=== PATIENT | female | born 1940 | race Asian ===

== ENCOUNTER 2017-10-03 13:30 | Inpatient (IN) | payer MEDICARE, OTHER ==
[~2017-10-03] VITALS: Ht 152.4 cm; Wt 79.0 kg
[~2017-10-03 13:30] MED LIST: ASPI325T33 PO; ATOR40TA16 PO; AZOR5TAB4 PO; CLOP75TA PO; GLIP-157 PO; HYDR-3580 PO; LUTE20CA PO; METO100T PO; TOLT1CAP PO
[2017-10-24] MEDS ORDERED: CHLORHEXIDINE GLUCONATE 2 % 1 PACK (2 CLOTHS) TOPICAL PRN (05:45)
[2017-10-24] MEDS ORDERED: POVIDONE IODINE 5% (ANTISEPSIS KIT) 4 APPLICATIONS EACH NARE PRN (05:45)
[2017-10-24] MEDS ORDERED: SODIUM CHLORID 0.9% 500 ML IV PRN (05:45)
[2017-10-24] MEDS ORDERED: INSULIN HUMAN REGULAR 1,000 UNITS/10 ML VIAL SQ PRN (05:45)
[2017-10-24] MEDS ORDERED: LACTATED RINGER'S 1000 ML IV PRN (05:45)
[2017-10-24] MEDS ORDERED: METOPROLOL TARTRATE 25 MG TAB PO PRN (05:45)
[2017-10-24] MEDS ORDERED: metroNIDAZOLE 500 MG INJ 100 ML IV SCH (05:45)
[2017-10-24] MEDS ORDERED: ASPI1TAB57 PO (06:06)
[2017-10-24] MEDS ORDERED: ACETAMINOPHEN 1000 MG/100 ML 100 ML IV ONE (06:23)
[2017-10-24 06:31] LABS: PROTHROMBIN TIME - PATIENT 10.9 SEC (9.8-11.6)
[2017-10-24] MEDS ORDERED: SUGAMMADEX SODIUM 200 MG/2 ML VIAL IV PUSH ONE ×2 (06:53)
[2017-10-24] MEDS ORDERED: ceFAZolin INJ 1,000 MG VIAL ONE (07:40)
[2017-10-24] MEDS ORDERED: ceFAZolin INJ 1,000 MG VIAL IV ONE (09:37)
[2017-10-24] MEDS ORDERED: ONDANSETRON HCL 4 MG/2 ML VIAL IV PUSH PRN ×2 (11:15→12:30)
--- NOTE | 2017-10-24 11:22 | PD.OP ---
Operative Report Date of Surgery: Oct 24, 2017 Preoperative Diagnosis: Left Renal Mass Postoperative Diagnosis: same Procedure: Left robotic Radical Nephrectomy Surgeon: Chay Sadler Deputy Attorney General(s): n/a Operation and Findings: EBL 200 ml To ISC for observation due to comorbidities See dictated report. Chay Sadler MD Oct 24, 2017 11:22
[2017-10-24] MEDS ORDERED: GLUCAGON 1 MG/ML VIAL OTHER PRN (11:30)
[2017-10-24] MEDS ORDERED: LABETALOL HCL 100 MG/20 ML VIAL IV ONE (12:00)
[2017-10-24] MEDS ORDERED: ROCURONIUM INJ 50 MG/5 ML SYRINGE IV PUSH ONE (12:00)
[2017-10-24] MEDS ORDERED: ONDANSETRON HCL 4 MG/2 ML VIAL IV PUSH ONE (12:00)
[2017-10-24] MEDS ORDERED: STERILE WATER FOR INJECTION 20 ML VIAL IV ONE (12:00)
[2017-10-24] MEDS: SODIUM CHLOR 0.9% 1000 ML INJ 1,000 ML IV SCH ×2 (12:00→21:25)
[2017-10-24] MEDS ORDERED: PROPOFOL 200 MG/20 ML AMP IV ONE (12:00)
[2017-10-24] MEDS ORDERED: SODIUM CHLORID 0.9% 500 ML INJ 500 ML IV ONE (12:00)
[2017-10-24] MEDS ORDERED: EPINEPHrine HCL (1:1000) 1 MG/ML VIAL IV ONE (12:00)
[2017-10-24] MEDS ORDERED: LIDOCAINE HCL 1% PF 5 ML SYRINGE OTHER ONE (12:00)
[2017-10-24] MEDS ORDERED: NORMOSOL R INJ 3,000 ML IV ONE (12:00)
[2017-10-24] MEDS ORDERED: DEXAMETHASONE SOD PHOS 4 MG/ML VIAL IV ONE (12:00)
[2017-10-24] MEDS ORDERED: VECURONIUM BROMIDE 20 MG VIAL IV ONE (12:00)
[2017-10-24] MEDS ORDERED: ePHEDrine/NS 25 MG/5 ML SYR IV ONE (12:00)
[2017-10-24] MEDS ORDERED: *ONDANSETRON 4 MG VIAL PERIprocedural Use ONLY ONE (12:17)
[2017-10-24 12:27] LABS: AUTOMATED NEUTROPHIL # 14.3 TH/MM3 (1.8-7.7); BASOPHIL % 0.3 % (0.0-2.0); EOSINOPHIL % 0.1 % (0.0-4.0); HEMATOCRIT 29.9 % (35.0-46.0); HEMO FLAGS DIFF FINAL; LYMPHOCYTE # 1.3 TH/MM3 (1.0-4.8); MEAN CELL VOLUME 66.1 FL (80.0-100.0); MEAN CORPUSCULAR HEMOGLOBIN 21.5 PG (27.0-34.0); MEAN CORPUSCULAR HGB CONC 32.5 % (32.0-36.0); MONO % 1.9 % (0.0-8.0); NEUT % 89.7 % (16.0-70.0); PLATELET COUNT 200 TH/MM3 (150-450); RED BLOOD COUNT 4.52 MIL/MM3 (4.00-5.30); RED CELL DISTRIBUTION WIDTH 17.4 % (11.6-17.2); WHITE BLOOD COUNT 15.9 TH/MM3 (4.0-11.0)
--- NOTE | 2017-10-24 12:28 | PD.CONS ---
[facility] Service Critical Care Medicine Consult Requested By Dr. Sadler Reason for Consult Critical care management status post left robot-assisted nephrectomy Primary Care Physician No Primary Care Physician History of Present Illness This is a 77-year-old female. Date of admission 10/24/2017. Date of consultation 10/24/2017. Past medical history includes obstructive sleep apnea , hypertension, dyslipidemia, coronary disease, history of myocardial infarction with 2 stents, gastroesophageal reflux disease, urge incontinence and diabetes mellitus. Patient presents today to [facility] for elective left assisted nephrectomy due to left renal mass. Noted that information was a chain revealed medical chart. Patient is currently reviving from his sedation from procedure. Back in June 2017, patient was referred by primary physician for evaluation of 4 cm mass in the left kidney.. Patient received close to hold aspirin & clopidogrel for 1 week. Risks were discussed per urologist. Today, patient underwent robot-assisted hours 6 foot radical nephrectomy due to encapsulated left renal mass Patient received 800 cc crystalloid. EBL 200 cc. Urine output 2 50 cc. Patient received 2 g of cefazolin 500 mg of metronidazole intraoperatively. Patient also received numerous as needed anti-hypertensive due to elevated vena cava pressure. Currently patient is snoring but protecting airway and slowly returning to her mental baseline Review of Systems Constitutional: DENIES: Fatigue, Fever, Weight gain, Weight loss Endocrine: DENIES: Polydipsia, Polyuria Eyes: DENIES: Blurred vision Ears, nose, mouth, throat: DENIES: Tinnitus Respiratory: DENIES: Apneas, Shortness of breath Cardiovascular: DENIES: Chest pain, Lower Extremity Edema Gastrointestinal: DENIES: Constipation, Diarrhea, Nausea, Vomiting Genitourinary: COMPLAINS OF: Urinary incontinence, DENIES: Urinary frequency Musculoskeletal: DENIES: Joint pain Integumentary: DENIES: Pruritus, Rash Hematologic/lymphatic: DENIES: Bruising Immunologic/allergic: DENIES: Eczema Neurologic: DENIES: Abnormal gait, Headache Psychiatric: COMPLAINS OF: Confusion, DENIES: Anxiety, Depression Past Family Social History Allergies: Coded Allergies: codeine (Verified Allergy, Severe, NAUSEA/VOMITING, 10/24/17) Past Medical History Obstructive sleep apnea Coronary artery disease Hypertension Dyslipidemia Urge incontinence Gastroesophageal reflux disease Diabetes mellitus Elevated BMI Left renal mass Past Surgical History Bilateral cataracts Tonsillectomy Bridge/ dental implant Appendectomy Hysterectomy Breast biopsy Reported Medications Clopidogrel 75 mg by mouth daily Atorvastatin 40 mg by mouth daily Metoprolol 100 mg by mouth daily Amlodipine/olmesartan 5/40 one tablet daily Aspirin 325 mg -currently 81 mg daily Hydrocodone/acetaminophen 5/325 one half tablet as needed Glipizide 5 mg by mouth daily Lutein 4 alexi grams daily Tolterodine 4 mg by mouth daily Active Ordered Medications Reviewed in EMR Family History Mother with diabetes mellitus Social History No tobacco use. No illicit drug use tachypneic. Drinks wine occasionally Physical Exam Vital Signs Vital Signs Date Time Temp Pulse Resp B/P (MAP) Pulse Ox O2 Delivery O2 Flow Rate FiO2 10/24/17 06:00 98.1 76 20 127/57 (80) 100 Physical Exam GENERAL: 69-year-old female, currently resting in PACU bed on nasal cannula in no acute distress SKIN: Warm and dry. Well-perfused. HEAD: Atraumatic. Normocephalic. EYES: Pupils equal and round about 3 mm bilaterally and reactive. No scleral icterus. No injection or drainage. ENT: No nasal bleeding or discharge. Mucous membranes pink and moist. NECK: Trachea midline. No JVD. CARDIOVASCULAR: Regular rate and rhythm. S1, S2 no S4. Without murmur RESPIRATORY: No accessory muscle use. Clear to auscultation. Breath sounds equal bilaterally. GASTROINTESTINAL: Abdomen soft, non-tender, nondistended. 4 trochars left- sided abdomen. Incision over left lower quadrant is clean dry and intact without erythema currently covered with ABDs MUSCULOSKELETAL: Extremities without significant peripheral edema. No obvious deformities. NEUROLOGICAL: Awake and alert. No obvious cranial nerve deficits. Motor grossly within normal limits. Five out of 5 muscle strength in the arms and legs. Normal speech. Laboratory Laboratory Tests Test 10/24/17 06:05 10/24/17 12:07 Prothrombin Time 10.9 Prothromb Time International Ratio 1.0 Assessment and Plan Assessment and Plan Neuro/Psych: Oxycodone 5-10 mg by mouth every 6 hours when necessary pain. Morphine sulfate 4 mill grams IV every 3 hours when necessary breakthrough pain Currently on scheduled Ofirmev (acetaminophen IV) 1000 mg every 6 hours scheduled per urology CV: Coronary artery disease status post stent 2 Hypertension Dyslipidemia Resumed home medications of metoprolol 100 mg daily, amlodipine/olmesartan 5/40 one tablet daily. As needed hydralazine, labetalol and Nitropaste for systolic blood pressure greater than 160 Resume atorvastatin 40 mg by mouth daily for dyslipidemia Holding clopidogrel 75 mg daily. Resume when clinically indicated Aspirin decreased from 325-81 mg daily Patient is currently normal saline at 125 cc an hour Resp: Obstructive sleep apnea Nasal cannula to maintain saturations greater than or equal to 92% Incentive spirometry while awake Patient is brought oral airway device As needed albuterol nebulizers every 2 hours. Dyspnea GI: Gastroesophageal reflux disease Clear liquid diet Pantoprazole 40 mg IV daily for gastroesophageal reflux disease Docusate sodium/senna 1 tablet twice a day for bowel regimen : Urge incontinence Holding tolterodine 4 mg at night per urology Melendez catheter management per urologist Endo: Diabetes mellitus Currently on glipizide 5 mg daily. Sliding-scale insulin with Accu-Cheks to maintain euglycemia every 6 hours/ medium regimen of novulog Renal: Postop day #0 robot-assisted laparoscopy nephrectomy secondary to encapsulated left renal mass - Dr. Sadler Postoperative management per urologist Monitor urine output Accurate I's and O's Left renal Mass Heme: Follow-up CBC. Coags normal upon admission. ID: Currently receiving dose #2 of 3 of cefazolin per urology See 1 dose of metronidazole in OR Monitor for infection FEN: Replace electrolytes as clinically indicated MSK: PT evaluate and treat Access - Right radial arterial line day placed in OR. Utilized peripheral IVs # 4 Prophylaxis - GI - DVT - SCD/pharmacological prophylaxis when okay with urology Level III consult Code Status Full code Discussed Condition With Patient. 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 Care plan discussed and all questions answered Jeffery Mcconnell MD Oct 24, 2017 12:28
[2017-10-24] MEDS ORDERED: NITROGLYCERIN 2% OINT 1 GM PACKET TOPICAL PRN (12:30)
[2017-10-24] MEDS ORDERED: BISACODYL 10 MG SUPP RECTAL PRN (12:30)
[2017-10-24] MEDS ORDERED: MISCELLANEOUS NURSING INFORMATION XX SCH (12:30)
[2017-10-24] MEDS ORDERED: LACTULOSE SYRUP 20 GM/30 ML CUP PO PRN (12:30)
[2017-10-24] MEDS ORDERED: CHLORHEXIDINE GLUCONATE 2 % 1 PACK (2 CLOTHS) TOP PRN (12:30)
[2017-10-24] MEDS ORDERED: SODIUM CHLORIDE 0.9% FLUSH 10 ML FLUSH IV FLUSH PRN (12:30)
[2017-10-24] MEDS ORDERED: SENNOSIDES 8.6 MG TAB PO PRN (12:30)
[2017-10-24] MEDS ORDERED: RESP: ALBUTEROL 2.5 MG/3 ML NEB (PRN) INH (12:30)
[2017-10-24] MEDS ORDERED: MAGNESIUM HYDROXIDE SUSP 30 ML CUP PO PRN (12:30)
[2017-10-24 12:38] LABS: BICARBONATE 23.8 MEQ/L (21.0-32.0); POTASSIUM 4.4 MEQ/L (3.5-5.1)
[2017-10-24 13:00] VITALS: BP 128/60; PULSE 88; RESP 19; TEMP 97.7; O2SAT 96
[2017-10-24] MEDS ORDERED: DEXTROSE 50% IN WATER 50 ML VIAL(D50) IV PUSH PRN (13:00)
[2017-10-24] MEDS ORDERED: PANTOPRAZOLE SODIUM 40 MG VIAL IV PUSH SCH (13:00)
[2017-10-24] MEDS: INSULIN ASPART SUPPLEMENTAL SCALE SQ SCH ×2 (13:00→18:00)
[2017-10-24] MEDS ORDERED: DO NOT ADM ANY ANTICOAGULANT DRUGS PRN (13:15)
[2017-10-24] MEDS ORDERED: PILL SPLITTER OTHER PRN (13:15)
[2017-10-24] MEDS: hydrALAZINE HCL 20 MG/ML VIAL IV PUSH PRN (13:31)
[2017-10-24] MEDS: MORPHINE SULFATE 4 MG/ML INJ IV PUSH PRN (14:09)
[2017-10-24 15:00] VITALS: PULSE 92
[2017-10-24] MEDS: ACETAMINOPHEN 1000 MG/100 ML 100 ML IV SCH ×2 (15:00→21:24)
[2017-10-24 15:03] VITALS: O2SAT 97
[2017-10-24] MEDS: LABETALOL HCL 100 MG/20 ML VIAL IV PUSH PRN (15:50)
[2017-10-24 16:00] VITALS: BP 145/49; PULSE 92; RESP 16; TEMP 98.1; O2SAT 97
[2017-10-24 20:00] VITALS: BP 166/46; PULSE 96; RESP 15; TEMP 98; O2SAT 98
[2017-10-24] MEDS: SODIUM CHLORIDE 0.9% FLUSH 10 ML FLUSH IV FLUSH SCH (21:00)
[2017-10-24] MEDS ORDERED: LUTEIN 25 MG PO SCH (21:00)
[2017-10-24] MEDS: DOCUSATE SODIUM 100 MG CAP PO SCH (21:00)
[2017-10-24] MEDS: ATORVASTATIN 40 MG TAB PO SCH (21:24)
[2017-10-24] MEDS: DOCUSATE SODIUM 50 MG/SENNA 8.6 MG TAB PO SCH (21:25)
[2017-10-24 23:00] VITALS: PULSE 96
[2017-10-25] VITALS (11 sets, daily range): BP systolic 138–163; BP diastolic 44–84; PULSE 68–86; RESP 16–22; TEMP 97.6–98.2; O2SAT 94–98
[2017-10-25] MEDS: ACETAMINOPHEN 1000 MG/100 ML 100 ML IV SCH ×4 (02:05→20:44)
[2017-10-25] MEDS: SODIUM CHLOR 0.9% 1000 ML INJ 1,000 ML IV SCH ×2 (04:00→06:40)
[2017-10-25] MEDS: CHLORHEXIDINE GLUCONATE 2 % 1 PACK (2 CLOTHS) TOP SCH (04:00)
[2017-10-25 05:52] LABS: HEMATOCRIT 25.1 % (35.0-46.0); MEAN CELL VOLUME 65.5 FL (80.0-100.0); MEAN CORPUSCULAR HEMOGLOBIN 21.3 PG (27.0-34.0); MEAN CORPUSCULAR HGB CONC 32.5 % (32.0-36.0); PLATELET COUNT 180 TH/MM3 (150-450); RED BLOOD COUNT 3.83 MIL/MM3 (4.00-5.30); RED CELL DISTRIBUTION WIDTH 17.4 % (11.6-17.2); REVIEW FLAG FINAL; WHITE BLOOD COUNT 11.1 TH/MM3 (4.0-11.0)
[2017-10-25] MEDS: INSULIN ASPART SUPPLEMENTAL SCALE SQ SCH ×5 (06:00→21:00)
[2017-10-25 06:23] LABS: BICARBONATE 22.5 MEQ/L (21.0-32.0); POTASSIUM 3.7 MEQ/L (3.5-5.1)
[2017-10-25] MEDS: glipiZIDE 5 MG TAB PO SCH ×2 (08:26→17:14)
[2017-10-25] MEDS: METOPROLOL TARTRATE 100 MG TAB PO SCH (08:27)
[2017-10-25] MEDS: DOCUSATE SODIUM 50 MG/SENNA 8.6 MG TAB PO SCH ×2 (08:27→20:45)
[2017-10-25] MEDS: LOSARTAN 50 MG TAB PO SCH (08:27)
[2017-10-25] MEDS: ASPIRIN EC 81 MG TABEC PO SCH (08:27)
[2017-10-25] MEDS: amLODIPine BESYLATE 5 MG TAB PO SCH (08:27)
[2017-10-25] MEDS: DOCUSATE SODIUM 100 MG CAP PO SCH ×2 (08:28→20:44)
[2017-10-25] MEDS: SODIUM CHLORIDE 0.9% FLUSH 10 ML FLUSH IV FLUSH SCH ×2 (08:28→20:44)
[2017-10-25] MEDS ORDERED: NON-FORMULARY DRUG (Amlodipine-Olmesartan (Azor) 1 TAB) PO SCH (09:00)
[2017-10-25] MEDS ORDERED: PANTOPRAZOLE SODIUM 40 MG VIAL IV PUSH SCH (09:00)
[2017-10-25] MEDS ORDERED: POTASSIUM CHLORIDE 20 MEQ CONTROLLED RELEASE TAB PO ONE (09:45)
--- NOTE | 2017-10-25 09:52 | HHI.CCPN ---
Subjective Remarks/Hospital Course This is a 77-year-old female. Date of admission 10/24/2017. Date of consultation 10/24/2017. Past medical history includes obstructive sleep apnea , hypertension, dyslipidemia, coronary disease, history of myocardial infarction with 2 stents, gastroesophageal reflux disease, urge incontinence and diabetes mellitus. Patient presents today to [facility] for elective left assisted nephrectomy due to left renal mass. Noted that information was a chain revealed medical chart. Patient is currently reviving from his sedation from procedure. Back in June 2017, patient was referred by primary physician for evaluation of 4 cm mass in the left kidney.. Patient received close to hold aspirin & clopidogrel for 1 week. Risks were discussed per urologist. Today, patient underwent robot-assisted hours 6 foot radical nephrectomy due to encapsulated left renal mass Patient received 800 cc crystalloid. EBL 200 cc. Urine output 250 cc. Patient received 2 g of cefazolin 500 mg of metronidazole intraoperatively. Patient also received numerous as needed anti-hypertensive due to elevated vena cava pressure. Currently patient is snoring but protecting airway and slowly returning to her mental baseline Subjective 10/25: Afebrile. Received multiple as needed anti-hypertensives overnight. Denies chest pain. Right shoulder pain is improved. Pain is controlled with oxycodone. Positive flatus. No BM Objective Vital Signs Date Time Temp Pulse Resp B/P (MAP) Pulse Ox O2 Delivery O2 Flow Rate FiO2 10/25/17 08:51 97 21 10/25/17 08:00 98.1 77 22 163/84 (110) 10/25/17 07:00 Room Air 10/24/17 13:00 2.00 Intake and Output 10/25/17 10/25/17 10/26/17 08:00 16:00 00:00 Intake Total 120 ml Output Total 650 ml Balance -530 ml Result Diagram: 10/25/17 0509 10/25/17 0509 Objective Remarks GENERAL: 69-year-old female, currently resting in bed on room air in no acute distress SKIN: Warm and dry. Well-perfused. HEAD: Atraumatic. Normocephalic. EYES: Pupils equal and round about 3 mm bilaterally and reactive. No scleral icterus. No injection or drainage. ENT: No nasal bleeding or discharge. Mucous membranes pink and moist. NECK: Trachea midline. No JVD. CARDIOVASCULAR: Regular rate and rhythm. S1, S2 no S4. Without murmur RESPIRATORY: No accessory muscle use. Clear to auscultation. Breath sounds equal bilaterally. GASTROINTESTINAL: Abdomen soft, non-tender, nondistended. 4 trochars scars left -sided abdomen. Incision over left lower quadrant is clean dry and intact without erythema currently covered with ABDs MUSCULOSKELETAL: Extremities without significant peripheral edema. No obvious deformities. NEUROLOGICAL: Awake and alert. No obvious cranial nerve deficits. Motor grossly within normal limits. Five out of 5 muscle strength in the arms and legs. Normal speech. A/P Assessment and Plan Neuro/Psych: Oxycodone 5-10 mg by mouth every 6 hours when necessary pain. Morphine sulfate 4 mill grams IV every 3 hours when necessary breakthrough pain Currently on scheduled Ofirmev (acetaminophen IV) 1000 mg every 6 hours scheduled per urology CV: Coronary artery disease status post stent 2 Hypertension Dyslipidemia Resumed home medications of metoprolol 100 mg daily, amlodipine/olmesartan 5/40 one tablet daily. As needed hydralazine, labetalol and Nitropaste for systolic blood pressure greater than 160 -Added hydralazine 25 mg 3 times a day and isosorbide dinitrate 10 mg 3 times a day Resume atorvastatin 40 mg by mouth daily for dyslipidemia Holding clopidogrel 75 mg daily. Resume when clinically indicated Aspirin decreased from 325-81 mg daily Patient is currently normal saline at 125 cc an hour Resp: Obstructive sleep apnea Nasal cannula to maintain saturations greater than or equal to 92% Incentive spirometry while awake Patient is brought oral airway device As needed albuterol nebulizers every 2 hours. Dyspnea GI: Gastroesophageal reflux disease Clear liquid diet. Advance per urology Pantoprazole 40 mg IV daily for gastroesophageal reflux disease Docusate sodium/senna 1 tablet twice a day for bowel regimen : Urge incontinence Holding tolterodine 4 mg at night per urology Melendez catheter management per urologist Endo: Diabetes mellitus Currently on glipizide 5 mg daily. Sliding-scale insulin with Accu-Cheks to maintain euglycemia before meals/at bedtime /medium regimen of novulog Renal: Postop day #1 robot-assisted laparoscopy nephrectomy secondary to encapsulated left renal mass - Dr. Sadler Postoperative management per urologist Monitor urine output Accurate I's and O's Left renal Mass pathology pending Heme: Leukocytosis Normocytic anemia Follow-up CBC. Coags normal upon admission. ID: Currently completed postoperative cefazolin per urology See 1 dose of metronidazole in OR Monitor for infection FEN: Replace electrolytes as clinically indicated 20 mg potassium chloride by mouth 1 now MSK: PT evaluate and treat Access - Right radial arterial line day placed in OR. Utilized peripheral IVs Prophylaxis - GI - pantoprazole - DVT - SCD/pharmacological prophylaxis when okay with urology Level II follow-up Jeffery Mcconnell MD Oct 25, 2017 09:52
--- NOTE | 2017-10-25 12:35 | HHI.PR ---
Subjective Patient symptoms today Had BP issues overnight. controlled with prn Hydralazine. Abdominal pain controlled. tolerated clears. Denies flatus. Ambulated x 2. Denies SOB, CP, dizziness. Has appetite. Objective Vital Signs Vital Signs Date Time Temp Pulse Resp B/P (MAP) Pulse Ox O2 Delivery O2 Flow Rate FiO2 10/25/17 08:51 97 21 10/25/17 08:00 98.1 77 22 163/84 (110) 96 10/25/17 07:00 9 Room Air 10/25/17 07:00 70 10/25/17 06:33 15 10/25/17 04:00 98.2 76 16 153/68 (96) 95 10/25/17 02:35 17 10/25/17 00:00 98.0 84 18 138/44 (75) 95 10/24/17 23:00 96 10/24/17 20:00 98.0 96 15 166/46 (86) 98 10/24/17 19:00 98 Room Air 10/24/17 16:00 98.1 92 16 145/49 (81) 97 10/24/17 15:03 97 21 10/24/17 15:00 92 10/24/17 13:00 97.7 88 19 128/60 (82) 96 10/24/17 13:00 98 Nasal Cannula 2.00 10/24/17 13:00 88 10/24/17 12:40 98.2 85 16 139/63 (88) 98 Nasal Cannula 2 Intake & Output 10/25/17 10/25/17 07:00 19:00 Intake Total 120 ml 100 ml Output Total 650 ml Balance -530 ml 100 ml Intake Oral 120 ml IV Total 100 ml Output Urine Total 650 ml # Bowel Movements 0 Result Diagram: 10/25/17 0509 10/25/17 0509 Objective Remarks NAD. A/O x 3 non-labored breathing RRR abd soft, appropriately tender, ND. dressing dry quiroz clear urine Ext NT. No c/c/e. Medications and IVs Current Medications Medications (Trade) Dose Ordered Sig/Velia Route Start Time Stop Time Status Last Admin Metronidazole 100 ml @ 200 mls/hr LOOPING MACHINE OPERATOR IV 10/24/17 05:45 10/27/17 05:44 10/24/17 06:45 (Lopressor) 25 mg LOOPING MACHINE OPERATOR PRN PO 10/24/17 05:45 10/27/17 05:44 (Betadine 5% Antisepsis Kit) 1 applic LOOPING MACHINE OPERATOR PRN EACH NARE 10/24/17 05:45 10/27/17 05:44 10/24/17 06:25 (Chlorhexidine 2% Cloth) 3 pack LOOPING MACHINE OPERATOR PRN TOPICAL 10/24/17 05:45 10/27/17 05:44 10/24/17 05:30 Sodium Chloride 1,000 ml @ 125 mls/hr Q8H IV 10/24/17 12:00 10/25/17 06:40 (Colace) 100 mg BID PO 10/24/17 21:00 Acetaminophen 100 ml @ 400 mls/hr Q6H IV 10/24/17 15:00 10/25/17 08:28 (Roxicodone) 10 mg Q6H PRN PO 10/24/17 12:45 (Roxicodone) 5 mg Q4H PRN PO 10/24/17 11:15 10/25/17 05:33 (Zofran Inj) 4 mg Q6HR PRN IV PUSH 10/24/17 11:15 10/24/17 13:31 (Morphine Inj) 4 mg Q3H PRN IV PUSH 10/24/17 11:15 10/24/17 14:09 (Ecotrin Ec) 81 mg DAILY PO 10/25/17 09:00 10/25/17 08:27 (Lipitor) 40 mg HS PO 10/24/17 21:00 10/24/17 21:24 (Lopressor) 100 mg DAILY PO 10/25/17 09:00 10/25/17 08:27 (Glucotrol) 2.5 mg BID@0800,1700 PO 10/25/17 08:00 10/25/17 08:26 (D50w (Vial) Inj) 50 ml UNSCH PRN IV PUSH 10/24/17 13:00 (Glucagon Inj) 1 mg UNSCH PRN OTHER 10/24/17 11:30 (NS Flush) 2 ml UNSCH PRN IV FLUSH 10/24/17 12:30 (NS Flush) 2 ml BID IV FLUSH 10/24/17 21:00 10/25/17 08:28 (Albuterol Neb) 2.5 mg Q2HR NEB PRN INH 10/24/17 12:30 Miscellaneous Information 1 Q361D XX 10/24/17 12:30 10/24/17 12:30 (Chlorhexidine 2% Cloth) 3 pack Taper DAILY@04 TOP 10/25/17 04:00 10/21/18 03:59 (Chlorhexidine 2% Cloth) 3 pack UNSCH PRN TOP 10/24/17 12:30 (Mary-Colace) 1 tab BID PO 10/24/17 21:00 10/25/17 08:27 (Milk Of Magnesia Liq) 30 ml Q12H PRN PO 10/24/17 12:30 (Senokot) 17.2 mg Q12H PRN PO 10/24/17 12:30 (Dulcolax Supp) 10 mg DAILY PRN RECTAL 10/24/17 12:30 (Lactulose Liq) 30 ml DAILY PRN PO 10/24/17 12:30 (Apresoline Inj) 10 mg Q1HR PRN IV PUSH 10/24/17 12:30 10/24/17 13:31 (Trandate Inj) 10 mg Q1HR PRN IV PUSH 10/24/17 12:30 10/24/17 15:50 (Nitroglycerin 2% Oint) 2 inch Q6HR PRN TOPICAL 10/24/17 12:30 10/24/17 14:33 (Norvasc) 5 mg DAILY PO 10/25/17 09:00 10/25/17 08:27 (Cozaar) 100 mg DAILY PO 10/25/17 09:00 10/25/17 08:27 Miscellaneous Information ALL NURSING DEPARTME... UNSCH PRN .XX 10/24/17 13:15 10/25/17 13:14 (Pill Splitter) 1 ea UNSCH PRN OTHER 10/24/17 13:15 (Apresoline) 25 mg Q8HR PO 10/25/17 14:00 (Isordil) 10 mg Q8HR PO 10/25/17 14:00 (NovoLOG SUPPLEMENTAL SCALE) 1 ACHS SQ 10/25/17 12:00 (Protonix) 40 mg DAILY PO 10/26/17 09:00 Assessment and Plan Assessment and Plan POD#1 s/p Left Robotic Radical Nephrectomy -Advance diet -Hgb down to 8.1, but vitals stable. Repeat CBC in A.M. Keep Plavix, ASA 325 mg on hold. Continue ASA 81 mg daily. -D/c quiroz -Ambulate, IS -Appreciate assistance from Photographer Aerial -GI/DVT prophylaxis Chay Sadler MD Oct 25, 2017 12:35
[2017-10-25] MEDS: hydrALAZINE HCL 25 MG TAB PO SCH ×2 (14:00→21:00)
[2017-10-25] MEDS: ISOSORBIDE DINITRATE 10 MG TAB PO SCH ×2 (14:32→21:00)
[2017-10-25] MEDS: ATORVASTATIN 40 MG TAB PO SCH (20:45)
[2017-10-26] VITALS (12 sets, daily range): BP systolic 133–174; BP diastolic 54–72; PULSE 72–99; RESP 17–23; TEMP 96.7–98.8; O2SAT 94–98
[2017-10-26] MEDS: hydrALAZINE HCL 20 MG/ML VIAL IV PUSH PRN ×2 (00:44→03:45)
[2017-10-26] MEDS: LABETALOL HCL 100 MG/20 ML VIAL IV PUSH PRN ×2 (00:44→03:42)
[2017-10-26] MEDS: SODIUM CHLOR 0.9% 1000 ML INJ 1,000 ML IV SCH ×2 (00:45→10:40)
[2017-10-26] MEDS: MORPHINE SULFATE 4 MG/ML INJ IV PUSH PRN (01:20)
[2017-10-26] MEDS: CHLORHEXIDINE GLUCONATE 2 % 1 PACK (2 CLOTHS) TOP SCH (03:40)
[2017-10-26] MEDS: ACETAMINOPHEN 1000 MG/100 ML 100 ML IV SCH ×3 (03:50→14:00)
[2017-10-26] MEDS: ISOSORBIDE DINITRATE 10 MG TAB PO SCH ×3 (05:09→20:50)
[2017-10-26] MEDS: hydrALAZINE HCL 25 MG TAB PO SCH ×3 (05:09→20:51)
[2017-10-26 06:20] LABS: MEAN CELL VOLUME 66.1 FL (80.0-100.0); MEAN CORPUSCULAR HEMOGLOBIN 22.2 PG (27.0-34.0); MEAN CORPUSCULAR HGB CONC 33.6 % (32.0-36.0); PLATELET COUNT 167 TH/MM3 (150-450); RED BLOOD COUNT 3.79 MIL/MM3 (4.00-5.30); RED CELL DISTRIBUTION WIDTH 17.6 % (11.6-17.2); REVIEW FLAG FINAL; WHITE BLOOD COUNT 12.4 TH/MM3 (4.0-11.0)
[2017-10-26 06:35] LABS: BICARBONATE 22.1 MEQ/L (21.0-32.0); POTASSIUM 3.9 MEQ/L (3.5-5.1)
[2017-10-26] MEDS: INSULIN ASPART SUPPLEMENTAL SCALE SQ SCH ×4 (08:00→21:00)
[2017-10-26] MEDS: DOCUSATE SODIUM 50 MG/SENNA 8.6 MG TAB PO SCH ×2 (08:02→20:50)
[2017-10-26] MEDS: LOSARTAN 50 MG TAB PO SCH (08:02)
[2017-10-26] MEDS: METOPROLOL TARTRATE 100 MG TAB PO SCH (08:02)
[2017-10-26] MEDS: SODIUM CHLORIDE 0.9% FLUSH 10 ML FLUSH IV FLUSH SCH ×2 (08:02→20:51)
[2017-10-26] MEDS: PANTOPRAZOLE SOD 40 MG DELAYED RELEASE TAB PO SCH (08:02)
[2017-10-26] MEDS: amLODIPine BESYLATE 5 MG TAB PO SCH (08:02)
[2017-10-26] MEDS: DOCUSATE SODIUM 100 MG CAP PO SCH ×2 (08:02→20:50)
[2017-10-26] MEDS: ASPIRIN EC 81 MG TABEC PO SCH (08:02)
[2017-10-26] MEDS: glipiZIDE 5 MG TAB PO SCH ×2 (08:18→17:28)
--- NOTE | 2017-10-26 13:49 | HHI.CCPN ---
Subjective Remarks/Hospital Course This is a 77-year-old female. Date of admission 10/24/2017. Date of consultation 10/24/2017. Past medical history includes obstructive sleep apnea , hypertension, dyslipidemia, coronary disease, history of myocardial infarction with 2 stents, gastroesophageal reflux disease, urge incontinence and diabetes mellitus. Patient presents today to [facility] for elective left assisted nephrectomy due to left renal mass. Noted that information was a chain revealed medical chart. Patient is currently reviving from his sedation from procedure. Back in June 2017, patient was referred by primary physician for evaluation of 4 cm mass in the left kidney.. Patient received close to hold aspirin & clopidogrel for 1 week. Risks were discussed per urologist. Today, patient underwent robot-assisted hours 6 foot radical nephrectomy due to encapsulated left renal mass Patient received 800 cc crystalloid. EBL 200 cc. Urine output 250 cc. Patient received 2 g of cefazolin 500 mg of metronidazole intraoperatively. Patient also received numerous as needed anti-hypertensive due to elevated vena cava pressure. Currently patient is snoring but protecting airway and slowly returning to her mental baseline 10/25: Afebrile. Received multiple as needed anti-hypertensives overnight. Denies chest pain. Right shoulder pain is improved. Pain is controlled with oxycodone. Positive flatus. No BM Subjective 10/26: Overnight, clear "not feeling right". Neck pain? Received 2 mg of morphine and slept the rest at night. No episodes of apnea per RN. Blood pressure better controlled. Tolerating diet. No BM. Objective Vital Signs Date Time Temp Pulse Resp B/P (MAP) Pulse Ox O2 Delivery O2 Flow Rate FiO2 10/26/17 12:00 98.2 79 23 138/63 (88) 96 10/26/17 07:00 Room Air 10/25/17 20:05 21 10/24/17 13:00 2.00 Intake and Output 10/26/17 10/26/17 10/27/17 08:00 16:00 00:00 Intake Total 2476 ml 1100 ml Output Total 950 ml Balance 1526 ml 1100 ml Result Diagram: 10/26/17 0600 10/26/17 0600 Objective Remarks GENERAL: 69-year-old female, currently resting in bed on room air in no acute distress SKIN: Warm and dry. Well-perfused. HEAD: Atraumatic. Normocephalic. EYES: Pupils equal and round about 3 mm bilaterally and reactive. No scleral icterus. No injection or drainage. ENT: No nasal bleeding or discharge. Mucous membranes pink and moist. NECK: Trachea midline. No JVD. CARDIOVASCULAR: Regular rate and rhythm. S1, S2 no S4. Without murmur RESPIRATORY: No accessory muscle use. Clear to auscultation. Breath sounds equal bilaterally. GASTROINTESTINAL: Abdomen soft, non-tender, nondistended. 4 trochars scars left -sided abdomen. Incision over left lower quadrant is clean dry and intact without erythema currently covered with ABDs MUSCULOSKELETAL: Extremities without significant peripheral edema. No obvious deformities. NEUROLOGICAL: Awake and alert. No obvious cranial nerve deficits. Motor grossly within normal limits. Five out of 5 muscle strength in the arms and legs. Normal speech. A/P Assessment and Plan Neuro/Psych: Oxycodone 5-10 mg by mouth every 6 hours when necessary pain. Morphine sulfate 4 mill grams IV every 3 hours when necessary breakthrough pain Currently on scheduled Ofirmev (acetaminophen IV) 1000 mg every 6 hours scheduled per urology CV: Coronary artery disease status post stent 2 Hypertension Dyslipidemia Resumed home medications of metoprolol 100 mg daily, amlodipine/olmesartan 5/40 one tablet daily. As needed hydralazine, labetalol and Nitropaste for systolic blood pressure greater than 160 -Added hydralazine 25 mg 3 times a day and isosorbide dinitrate 10 mg 3 times a day on 10/25 Resume atorvastatin 40 mg by mouth daily for dyslipidemia Holding clopidogrel 75 mg daily. Resume when clinically indicated Aspirin decreased from 325-81 mg daily Patient is currently normal saline at 83 cc an hour Resp: Obstructive sleep apnea Nasal cannula to maintain saturations greater than or equal to 92% Incentive spirometry while awake Patient is brought oral airway device As needed albuterol nebulizers every 2 hours as needed Dyspnea GI: Gastroesophageal reflux disease ADA diet Pantoprazole 40 mg IV daily for gastroesophageal reflux disease Docusate sodium/senna 1 tablet twice a day for bowel regimen : Urge incontinence Holding tolterodine 4 mg at night per urology Melendez catheter management per urologist Endo: Diabetes mellitus Currently on glipizide 2.5 mg twice a day Sliding-scale insulin with Accu-Cheks to maintain euglycemia before meals/at bedtime /medium regimen of NovoLog Renal: Postop day #2 robot-assisted laparoscopy nephrectomy secondary to encapsulated left renal mass - Dr. Sadler Postoperative management per urologist Monitor urine output Accurate I's and O's Left renal Mass pathology pending Heme: Leukocytosis Normocytic anemia Follow-up CBC. Coags normal upon admission. ID: Currently completed postoperative cefazolin per urology See 1 dose of metronidazole in OR Monitor for infection FEN: Replace electrolytes as clinically indicated MSK: PT evaluate and treat/OOB Access - Right radial arterial line day placed in OR. Utilized peripheral IVs Prophylaxis - GI - pantoprazole - DVT - SCD/pharmacological prophylaxis when okay with urology Level II follow-up. Patient is stable from a critical care medicine standpoint. Okay to transfer out of ICU to general medical floor. Jeffery Mcconnell MD Oct 26, 2017 13:49
--- NOTE | 2017-10-26 14:55 | HHI.PR ---
Subjective Patient symptoms today BP much better today. Has not required prn meds. Had BM this morning. Tolerating regular diet. Ambulating in hallways. Denies CP/SOB/F/C. Pain controlled. Objective Vital Signs Vital Signs Date Time Temp Pulse Resp B/P (MAP) Pulse Ox O2 Delivery O2 Flow Rate FiO2 10/26/17 12:00 98.2 79 23 138/63 (88) 96 10/26/17 08:00 98.6 93 20 161/69 (99) 96 10/26/17 07:00 95 Room Air 10/26/17 06:00 93 10/26/17 04:00 94 10/26/17 04:00 97.8 99 19 133/54 (80) 96 10/26/17 02:00 98 10/26/17 00:00 82 10/26/17 00:00 98.1 83 20 174/72 (106) 94 10/25/17 23:00 86 10/25/17 20:05 97 21 10/25/17 20:00 97.9 74 20 160/72 (101) 94 10/25/17 19:00 94 Room Air 10/25/17 16:00 98.0 73 17 152/52 (85) 96 10/25/17 15:00 77 Intake & Output 10/26/17 10/26/17 07:00 19:00 Intake Total 2576 ml 1100 ml Output Total 950 ml Balance 1626 ml 1100 ml Intake Oral 380 ml IV Total 2196 ml 1100 ml Output Urine Total 950 ml # Bowel Movements 0 Result Diagram: 10/26/17 0600 10/26/17 0600 Objective Remarks NAD. A/O x 3 non-labored breathing RRR abd soft, appropriately tender, ND. inc c/d/i. Ext NT. No c/c/e. Medications and IVs Current Medications Medications (Trade) Dose Ordered Sig/Velia Route Start Time Stop Time Status Last Admin Metronidazole 100 ml @ 200 mls/hr [employer] IV 10/24/17 05:45 10/27/17 05:44 10/24/17 06:45 (Lopressor) 25 mg [employer] PRN PO 10/24/17 05:45 10/27/17 05:44 (Betadine 5% Antisepsis Kit) 1 applic [employer] PRN EACH NARE 10/24/17 05:45 10/27/17 05:44 10/24/17 06:25 (Chlorhexidine 2% Cloth) 3 pack [employer] PRN TOPICAL 10/24/17 05:45 10/27/17 05:44 10/24/17 05:30 Sodium Chloride 1,000 ml @ 83 mls/hr Q12H3M IV 10/24/17 12:00 10/26/17 10:40 (Colace) 100 mg BID PO 10/24/17 21:00 10/26/17 08:02 Acetaminophen 100 ml @ 400 mls/hr Q6H IV 10/24/17 15:00 10/26/17 14:00 (Roxicodone) 10 mg Q6H PRN PO 10/24/17 12:45 (Roxicodone) 5 mg Q4H PRN PO 10/24/17 11:15 10/25/17 05:33 (Zofran Inj) 4 mg Q6HR PRN IV PUSH 10/24/17 11:15 10/24/17 13:31 (Morphine Inj) 4 mg Q3H PRN IV PUSH 10/24/17 11:15 10/26/17 01:20 (Ecotrin Ec) 81 mg DAILY PO 10/25/17 09:00 10/26/17 08:02 (Lipitor) 40 mg HS PO 10/24/17 21:00 10/25/17 20:45 (Lopressor) 100 mg DAILY PO 10/25/17 09:00 10/26/17 08:02 (Glucotrol) 2.5 mg BID@0800,1700 PO 10/25/17 08:00 10/26/17 08:18 (D50w (Vial) Inj) 50 ml UNSCH PRN IV PUSH 10/24/17 13:00 (Glucagon Inj) 1 mg UNSCH PRN OTHER 10/24/17 11:30 (NS Flush) 2 ml UNSCH PRN IV FLUSH 10/24/17 12:30 (NS Flush) 2 ml BID IV FLUSH 10/24/17 21:00 10/26/17 08:02 (Albuterol Neb) 2.5 mg Q2HR NEB PRN INH 10/24/17 12:30 Miscellaneous Information 1 Q361D XX 10/24/17 12:30 10/24/17 12:30 (Chlorhexidine 2% Cloth) 3 pack Taper DAILY@04 TOP 10/25/17 04:00 10/21/18 03:59 (Chlorhexidine 2% Cloth) 3 pack UNSCH PRN TOP 10/24/17 12:30 (Mary-Colace) 1 tab BID PO 10/24/17 21:00 10/26/17 08:02 (Milk Of Magnesia Liq) 30 ml Q12H PRN PO 10/24/17 12:30 (Senokot) 17.2 mg Q12H PRN PO 10/24/17 12:30 (Dulcolax Supp) 10 mg DAILY PRN RECTAL 10/24/17 12:30 (Lactulose Liq) 30 ml DAILY PRN PO 10/24/17 12:30 (Apresoline Inj) 10 mg Q1HR PRN IV PUSH 10/24/17 12:30 10/26/17 03:45 (Trandate Inj) 10 mg Q1HR PRN IV PUSH 10/24/17 12:30 10/26/17 03:42 (Nitroglycerin 2% Oint) 2 inch Q6HR PRN TOPICAL 10/24/17 12:30 10/24/17 14:33 (Norvasc) 5 mg DAILY PO 10/25/17 09:00 10/26/17 08:02 (Cozaar) 100 mg DAILY PO 10/25/17 09:00 10/26/17 08:02 (Pill Splitter) 1 ea UNSCH PRN OTHER 10/24/17 13:15 (Apresoline) 25 mg Q8HR PO 10/25/17 14:00 10/26/17 14:00 (Isordil) 10 mg Q8HR PO 10/25/17 14:00 10/26/17 14:00 (NovoLOG SUPPLEMENTAL SCALE) 1 ACHS SQ 10/25/17 12:00 10/26/17 12:53 (Protonix) 40 mg DAILY PO 10/26/17 09:00 10/26/17 08:02 Assessment and Plan Assessment and Plan POD#2 s/p Left Robotic Radical Nephrectomy -Hgb stable. Repeat CBC tomorrow. Will consider restarting Plavix tomorrow. -Saline lock -Switch to PO pain meds. -GI/DVT prophylaxis -Ambulate, IS -Transfer to floor. Consult Hospitalist. -probably d/c in 1-2 days -Appreciate assistance. Chay Sadler MD Oct 26, 2017 14:55
[2017-10-26] MEDS ORDERED: oxyCODONE/ACETAMINOPHEN 5 MG/325 MG TAB PO PRN ×2 (15:00)
[2017-10-26] MEDS: ATORVASTATIN 40 MG TAB PO SCH (20:51)
--- NOTE | 2017-10-26 21:42 | MP ---
cc: KEDAR SANTOS MD DATE OF SURGERY 10/24/17 PREOPERATIVE DIAGNOSIS Left renal mass. POSTOPERATIVE DIAGNOSIS Left renal mass. PROCEDURE PERFORMED Robotic-assisted laparoscopic left radical nephrectomy. SURGEON MD Viktoriya. ANESTHESIA General. COMPLICATIONS None. PREOPERATIVE ANTIBIOTICS Ancef 1 gram IV. DRAINS 6-Nepalese Melendez catheter. SPECIMENS Left kidney for permanent. BLOOD LOSS 200 ml. DISPOSITION To recovery. INDICATIONS The patient is a 77-year-old -[place] female who was found to have an incidental left renal mass centrally located. Treatment options were discussed and she elected to proceed with laparoscopic radical nephrectomy. After risks, benefits, alternatives explained to the patient the patient elected to proceed, informed consent was obtained. DETAILS OF THE PROCEDURE The patient appropriately identified, brought back to the operating room, placed supine on the operating room table. Proper time-out was performed. Under direction of anesthesiology the patient was intubated, induced under general aesthetic. Appropriate antibiotics in the form of Ancef 1 gram IV was given one hour prior to the procedure. A 6-Nepalese Melendez catheter was then placed under sterile technique. She was then placed in right lateral decubitus position with left side up. All pressure points were padded. She is then prepped, draped in normal sterile surgical fashion. A stab incision was made superior and lateral to the umbilicus and gently off of the xiphoid process and the twelfth rib. Veress needle was then used to gain entrance to the abdominal cavity. Insufflation was then achieved. Incision was extended to approximate 2 cm. Under direction visualization I then passed a 12-mm camera port into abdominal cavity. The abdominal cavity was carefully inspected. There was no evidence of any intraabdominal injury or bleeding. There was some adhesions along the midline from her previous hysterectomy. These were taken down bluntly with cold scissors in order to place other ports for access. At this time two 8 mm robotic ports were then triangulated off of the camera port, approximately ___ from each other from the camera port, 2, 5 and then 12 mm video library assistant port were then each placed, a 5-mm port in the midline superior umbilicus and a 12 mm port inferior umbilicus in the midline. Again, all ports were placed under direct visualization. The ___ was then brought into position. I began by taking down some anterior abdominal adhesions from the colon. I then reflect the colon by taking down the white line of Toldt. This exposed the retroperitoneum. She did have a significant amount of fat which was quite oozy. Of note, she has been off her Plavix 75 milligrams as well as her aspirin 325 milligrams for approximately 1 week. However, she did have some bleeding from the fat itself. Through dissection I was able to find the ureter and gonadal vein. Then developed a plane between posterior to the gonadal vein and ureter to find the psoas muscle. I then retracted the kidney anteriorly towards the abdominal wall and dissected cephalad up till I found the gonadal vein inserting into the renal vein. This was carefully dissected circumferentially and taken with robotic vessel sealer. At this time I noticed two small lower pole arteries feeding the lower pole of the kidney. These were carefully dissected out each individually and taken with endovascular stapler. She was then noted to have two large renal veins as well as a large renal artery. The lower pole vein was initially divided with endovascular GI stapler after dissecting it circumferentially. At this time this left just one main artery and another vein. The artery was carefully dissected prior to dividing it with an endovascular stapler. With just the last vein remaining this was divided as well. At this time the splenorenal ligament was divided with electrocautery. I was able to detach the kidney from the upper pole ___ the kidney from the spleen. The lateral fascia was then divided as well with bovie and electrocautery. This just left the inferior attachment of the ureter and gonadal vein. The endovascular stapler was then taken across this area which at this time freed the entire kidney. The kidney was then placed in the Endocatch bag for later removal. Insufflation was dropped down to 7 mmHg. The renal fossa was carefully inspected. There was no evidence of any bleeding. Three grams of Marika was then placed. The staple line on the hilum appeared to be intact. At this time the kidney was then extracted through the left lower quadrant incision after extending it. There is no evidence of bleeding during extraction. The fascia was then closed with a running 1-0 PDS. A second look was then performed. The abdominal cavity appeared to be dry with no evidence of bleeding. All ports were removed under direct visualization. This concluded the procedure. All skin incisions were closed with absorbable stitches. She was then extubated and sent to recovery in stable condition. She will be transferred to the floor for routine postoperative care. Sponge, needle count was correct at the end of the case. MD BEATA Arredondo/DANNY /2:24 PM /9:06 PM
[2017-10-27] VITALS: PULSE 91
[2017-10-27] MEDS: CHLORHEXIDINE GLUCONATE 2 % 1 PACK (2 CLOTHS) TOP SCH (01:12)
[2017-10-27 04:00] VITALS: PULSE 89
[2017-10-27 04:08] VITALS: BP 156/69; PULSE 94; RESP 18; TEMP 98.9; O2SAT 98
[2017-10-27] MEDS: hydrALAZINE HCL 25 MG TAB PO SCH (05:11)
[2017-10-27] MEDS: ISOSORBIDE DINITRATE 10 MG TAB PO SCH (05:11)
[2017-10-27 08:00] VITALS: BP 116/56; PULSE 96; RESP 16; TEMP 96.3; O2SAT 94
[2017-10-27] MEDS: INSULIN ASPART SUPPLEMENTAL SCALE SQ SCH ×2 (08:00→12:43)
[2017-10-27 09:03] LABS: AUTOMATED NEUTROPHIL # 9.6 TH/MM3 (1.8-7.7); BASOPHIL % 0.2 % (0.0-2.0); EOSINOPHIL # 0.3 TH/MM3 (0-0.4); HEMATOCRIT 26.5 % (35.0-46.0); HEMO FLAGS DIFF FINAL; LYMPH % 13.3 % (9.0-44.0); LYMPHOCYTE # 1.6 TH/MM3 (1.0-4.8); MEAN CELL VOLUME 66.8 FL (80.0-100.0); MEAN CORPUSCULAR HEMOGLOBIN 21.7 PG (27.0-34.0); MEAN CORPUSCULAR HGB CONC 32.5 % (32.0-36.0); MONO % 6.3 % (0.0-8.0); NEUT % 78.2 % (16.0-70.0); PLATELET COUNT 173 TH/MM3 (150-450); RED BLOOD COUNT 3.96 MIL/MM3 (4.00-5.30); RED CELL DISTRIBUTION WIDTH 17.1 % (11.6-17.2); WHITE BLOOD COUNT 12.3 TH/MM3 (4.0-11.0)
[2017-10-27 09:22] LABS: AST (GOT) 23 U/L (15-37); BICARBONATE 23.5 MEQ/L (21.0-32.0); BLOOD UREA NITROGEN 12 MG/DL (7-18); GLOMERULAR FILTRATION RATE 50 ML/MIN (>89); MAGNESIUM 2.3 MG/DL (1.5-2.5)
[2017-10-27] MEDS: DOCUSATE SODIUM 50 MG/SENNA 8.6 MG TAB PO SCH (09:26)
[2017-10-27] MEDS: METOPROLOL TARTRATE 100 MG TAB PO SCH (09:26)
[2017-10-27] MEDS: LOSARTAN 50 MG TAB PO SCH (09:26)
[2017-10-27] MEDS: DOCUSATE SODIUM 100 MG CAP PO SCH (09:26)
[2017-10-27] MEDS: amLODIPine BESYLATE 5 MG TAB PO SCH (09:26)
[2017-10-27] MEDS: PANTOPRAZOLE SOD 40 MG DELAYED RELEASE TAB PO SCH (09:26)
[2017-10-27] MEDS: ASPIRIN EC 81 MG TABEC PO SCH (09:27)
[2017-10-27] MEDS: glipiZIDE 5 MG TAB PO SCH (09:28)
[2017-10-27 09:32] LABS: ALKALINE PHOSPHATASE 63 U/L (45-117); ALT (GPT) 21 U/L (10-53); FREE T4 1.14 NG/DL (0.76-1.46); TOTAL BILIRUBIN ADULT 0.7 MG/DL (0.2-1.0)
[2017-10-27 10:25] LABS: ANION GAP 9 MEQ/L (5-15); CHLORIDE 108 MEQ/L (98-107); POTASSIUM 4.1 MEQ/L (3.5-5.1); SODIUM (NA) 140 MEQ/L (136-145)
[2017-10-27 10:59] VITALS: O2SAT 95
--- NOTE | 2017-10-27 11:10 | HHI.PR ---
Subjective Remarks Follow-up visit status post lap nephrectomy encapsulated renal mass, HTN, MS with stents, GERD. Patient seen and examined today sitting in a chair. Reports she is doing well. States that she has been ambulating in the room in and out of the bathroom using her walker. Denies pain and discomfort. Denies SOB/ dyspnea. Denies chest pain, palpitations, headaches, dizziness. Denies fevers, chills, n/v/d. Denies hematuria, dysuria. Objective Vitals Vital Signs Date Time Temp Pulse Resp B/P (MAP) Pulse Ox O2 Delivery O2 Flow Rate FiO2 10/27/17 10:59 95 10/27/17 08:00 96.3 96 16 116/56 (76) 94 10/27/17 04:08 98.9 94 18 156/69 (98) 98 10/27/17 04:00 89 10/27/17 03:36 20 10/27/17 00:00 91 10/26/17 23:54 Room Air 10/26/17 23:54 98.8 94 17 143/63 (89) 95 10/26/17 23:00 90 10/26/17 21:07 98 Nasal Cannula 2.00 10/26/17 20:48 96.7 72 18 170/70 (103) 98 10/26/17 20:48 Room Air 10/26/17 18:00 97.4 79 17 155/67 (96) 94 10/26/17 16:00 98.3 72 22 138/63 (88) 97 10/26/17 12:00 98.2 79 23 138/63 (88) 96 I/O 10/26/17 10/26/17 10/26/17 10/27/17 10/27/17 10/27/17 07:00 15:00 23:00 07:00 15:00 23:00 Intake Total 2476 ml 1100 ml 980 ml 480 ml Output Total 950 ml 1500 ml Balance 1526 ml 1100 ml 980 ml -1020 ml Intake Oral 380 ml 360 ml 480 ml IV Total 2096 ml 1100 ml 620 ml Output Urine Total 950 ml 1500 ml # Bowel Movements 0 0 Result Diagram: 10/27/17 0740 10/27/17 0740 Objective Remarks GENERAL: This is a well-nourished, well-developed patient, in no apparent distress. SKIN: Warm and dry HEENT: Normocephalic. Pupils equal round and reactive. Nose without bleeding. Airway patent. NECK: Trachea midline. No JVD. Supple. CARDIOVASCULAR: Regular rate and rhythm without murmurs, gallops, or rubs. RESPIRATORY: Clear to auscultation. Breath sounds equal bilaterally. No wheezes , rales, or rhonchi. GASTROINTESTINAL: Abdomen soft, non-tender, nondistended. Bowel Sounds normoactive x4. MUSCULOSKELETAL: Extremities without clubbing, cyanosis. Bilateral upper and lower extremity trace edema. NEUROLOGICAL: Awake and alert. Oriented to time, place, person. No focal neuro deficit. Moves all extremities. Normal speech. Procedures Status post left nephrectomy A/P Problem List: (1) Renal mass ICD Code: N28.89 - Other specified disorders of kidney and ureter (2) HTN (hypertension) ICD Code: I10 - Essential (primary) hypertension (3) CAD (coronary artery disease) ICD Code: I25.10 - Atherosclerotic heart disease of [place] coronary artery without angina pectoris Assessment and Plan Patient is a 77 year old female with primary medical history obstructive sleep apnea, HTN, dyslipidemia, CAD, history of MS 2 stents, DM 2 who came into the hospital for an elective lap nephrectomy secondary to renal mass. Status post left nephrectomy secondary to a capsulated renal mass - Pain management continued - Managed by primary team urology History of coronary artery disease post stent placement 2 HTN, chronic HLD, chronic - Continue with home medication amlodipine 5 mg daily, hydralazine 25 mg every 8 hours, isosorbide 10 mg every 8 hours, losartan 100 milligrams daily, metoprolol 100 mg daily - Continue aspirin now with lower dose 81 mg daily, will resume Plavix if okay with urology surgeon - Monitor BP trend. BP trend within normal DM 2 - On insulin sliding scale for now. Resume home medication glipizide 2.5 mg daily - Follow up with PCP for continued management DVT prop ambulation Discussed with patient, Dr. Toro Discharge Planning Medically cleared for discharge. Discharge by primary team. Attending Statement The exam, history, and the medical decision-making described in the above note were completed with the assistance of the mid-level provider. I reviewed and agree with the findings presented. I attest that I had a [id number] encounter with the patient on the same day, and personally performed and documented my assessment and findings in the medical record. Patient has no complaints. Denied any abdominal pain, nausea or vomiting. Patient very anxious to go home. Gen NAD CV RRR/ no r/m/g Abd soft NDNT Status post left nephrectomy secondary to a capsulated renal mass History of coronary disease, hypertension, hyperlipidemia Management per Urologist Continue her current management. We'll add Plavix if okay by urologist. Otherwise patient is medically clear for discharge. Amy Bledsoe Oct 27, 2017 11:10 Chitra Toro MD Oct 27, 2017 14:39
[2017-10-27 12:00] VITALS: BP 110/55; PULSE 70; PULSE 88; RESP 17; TEMP 96.1; O2SAT 92
[2017-10-27] MEDS ORDERED: OXYC1TAB63 PO (12:36)
[2017-10-27] MEDS ORDERED: DOCU1CAP39 PO (12:36)
--- NOTE | 2017-10-27 12:38 | HHI.PR ---
Subjective Patient symptoms today feels good. denies pain. Having BMs. BP controlled. Ambulating on own. Denies CP /SOB Objective Vital Signs Vital Signs Date Time Temp Pulse Resp B/P (MAP) Pulse Ox O2 Delivery O2 Flow Rate FiO2 10/27/17 12:00 96.1 70 17 110/55 (73) 92 10/27/17 10:59 95 10/27/17 08:00 96.3 96 16 116/56 (76) 94 10/27/17 04:08 98.9 94 18 156/69 (98) 98 10/27/17 04:00 89 10/27/17 03:36 20 10/27/17 00:00 91 10/26/17 23:54 Room Air 10/26/17 23:54 98.8 94 17 143/63 (89) 95 10/26/17 23:00 90 10/26/17 21:07 98 Nasal Cannula 2.00 10/26/17 20:48 96.7 72 18 170/70 (103) 98 10/26/17 20:48 Room Air 10/26/17 18:00 97.4 79 17 155/67 (96) 94 10/26/17 16:00 98.3 72 22 138/63 (88) 97 Intake & Output 10/27/17 10/27/17 06:59 18:59 Intake Total 480 ml Output Total 1500 ml Balance -1020 ml Intake Oral 480 ml Output Urine Total 1500 ml # Bowel Movements 0 Result Diagram: 10/27/17 0740 10/27/17 0740 Objective Remarks NAD. A/O x 3 non-labored breathing RRR abd soft, appropriately tender, ND. inc c/d/i. Ext NT. No c/c/e. Medications and IVs Current Medications Medications (Trade) Dose Ordered Sig/Velia Route Start Time Stop Time Status Last Admin (Colace) 100 mg BID PO 10/24/17 21:00 10/27/17 09:26 (Zofran Inj) 4 mg Q6HR PRN IV PUSH 10/24/17 11:15 10/24/17 13:31 (Morphine Inj) 4 mg Q3H PRN IV PUSH 10/24/17 11:15 10/26/17 01:20 (Ecotrin Ec) 81 mg DAILY PO 10/25/17 09:00 10/27/17 09:27 (Lipitor) 40 mg HS PO 10/24/17 21:00 10/26/17 20:51 (Lopressor) 100 mg DAILY PO 10/25/17 09:00 10/27/17 09:26 (Glucotrol) 2.5 mg BID@0800,1700 PO 10/25/17 08:00 10/27/17 09:28 (D50w (Vial) Inj) 50 ml UNSCH PRN IV PUSH 10/24/17 13:00 (Glucagon Inj) 1 mg UNSCH PRN OTHER 10/24/17 11:30 (NS Flush) 2 ml UNSCH PRN IV FLUSH 10/24/17 12:30 (NS Flush) 2 ml BID IV FLUSH 10/24/17 21:00 10/26/17 20:51 (Albuterol Neb) 2.5 mg Q2HR NEB PRN INH 10/24/17 12:30 Miscellaneous Information 1 Q361D XX 10/24/17 12:30 10/24/17 12:30 (Chlorhexidine 2% Cloth) 3 pack Taper DAILY@04 TOP 10/25/17 04:00 10/21/18 03:59 (Chlorhexidine 2% Cloth) 3 pack UNSCH PRN TOP 10/24/17 12:30 (Mary-Colace) 1 tab BID PO 10/24/17 21:00 10/27/17 09:26 (Milk Of Magnesia Liq) 30 ml Q12H PRN PO 10/24/17 12:30 (Senokot) 17.2 mg Q12H PRN PO 10/24/17 12:30 (Dulcolax Supp) 10 mg DAILY PRN RECTAL 10/24/17 12:30 (Lactulose Liq) 30 ml DAILY PRN PO 10/24/17 12:30 (Apresoline Inj) 10 mg Q1HR PRN IV PUSH 10/24/17 12:30 10/26/17 03:45 (Trandate Inj) 10 mg Q1HR PRN IV PUSH 10/24/17 12:30 10/26/17 03:42 (Nitroglycerin 2% Oint) 2 inch Q6HR PRN TOPICAL 10/24/17 12:30 10/24/17 14:33 (Norvasc) 5 mg DAILY PO 10/25/17 09:00 10/27/17 09:26 (Cozaar) 100 mg DAILY PO 10/25/17 09:00 10/27/17 09:26 (Pill Splitter) 1 ea UNSCH PRN OTHER 10/24/17 13:15 (Apresoline) 25 mg Q8HR PO 10/25/17 14:00 10/27/17 05:11 (Isordil) 10 mg Q8HR PO 10/25/17 14:00 10/27/17 05:11 (NovoLOG SUPPLEMENTAL SCALE) 1 ACHS SQ 10/25/17 12:00 10/26/17 12:53 (Protonix) 40 mg DAILY PO 10/26/17 09:00 10/27/17 09:26 (Percocet 5-325 Mg) 2 tab Q4H PRN PO 10/26/17 15:00 (Percocet 5-325 Mg) 1 tab Q4H PRN PO 10/26/17 15:00 10/27/17 02:46 Assessment and Plan Assessment and Plan POD# s/p Left Robotic Radical Nephrectomy -Hgb stable -D/c home today. F/U in 5-7 days -Restart Plavix, ASA tomorrow, 10/28/2017. Discussed with patient, family. Chay Sadler MD Oct 27, 2017 12:38
--- NOTE | 2017-10-27 12:40 | HHI.DS ---
Discharge Summary Admission Date Oct 24, 2017 at 05:15 Discharge Date: Oct 27, 2017 Admitting Diagnosis Left Renal Mass Procedures Left Robotic Radical Nephrectomy CBC/BMP: 10/27/17 0740 10/27/17 0740 Significant Findings Laboratory Tests Test 10/24/17 17:20 10/25/17 05:09 10/26/17 06:00 10/27/17 07:40 White Blood Count 11.1 TH/MM3 (4.0-11.0) 12.4 TH/MM3 (4.0-11.0) 12.3 TH/MM3 (4.0-11.0) Red Blood Count 3.83 MIL/MM3 (4.00-5.30) 3.79 MIL/MM3 (4.00-5.30) 3.96 MIL/MM3 (4.00-5.30) Hemoglobin 8.1 GM/DL (11.6-15.3) 8.4 GM/DL (11.6-15.3) 8.6 GM/DL (11.6-15.3) Hematocrit 25.1 % (35.0-46.0) 25.0 % (35.0-46.0) 26.5 % (35.0-46.0) Mean Corpuscular Volume 65.5 FL (80.0-100.0) 66.1 FL (80.0-100.0) 66.8 FL (80.0-100.0) Mean Corpuscular Hemoglobin 21.3 PG (27.0-34.0) 22.2 PG (27.0-34.0) 21.7 PG (27.0-34.0) Red Cell Distribution Width 17.4 % (11.6-17.2) 17.6 % (11.6-17.2) Creatinine 1.08 MG/DL (0.50-1.00) 1.07 MG/DL (0.50-1.00) Random Glucose 132 MG/DL (74-106) 162 MG/DL (74-106) Calcium Level 8.1 MG/DL (8.5-10.1) 8.3 MG/DL (8.5-10.1) Chloride Level 111 MEQ/L (98-107) 112 MEQ/L (98-107) 108 MEQ/L (98-107) Estimat Glomerular Filtration Rate 49 ML/MIN (>89) 55 ML/MIN (>89) 50 ML/MIN (>89) Neutrophils (%) (Auto) 78.2 % (16.0-70.0) Neutrophils # (Auto) 9.6 TH/MM3 (1.8-7.7) Albumin 2.9 GM/DL (3.4-5.0) Hospital Course 77 yo female was admitted following a Left Robotic Radical Nephrectomy. Her hospital course was uncomplicated. Catheter was removed on POD #1 and she was able to void on her own. Her hemoglobin dropped initially, but stabilized. She ambulated without difficulty. Had a BM. tolerated regular diet. She was discharged home on POD# 3. Pt Condition on Discharge: Good Discharge Disposition: Discharge Home Discharge Instructions DIET: Follow Instructions for: Heart Healthy Diet Activities you can perform: Full Weight Bearing, Shower Only-No Bath Activities to avoid: Strenuous Activity Additional Activity Instructio: No heavylifting greater than 15 lbs x 4 weeks No driving x 2 weeks New Medications: Docusate Sodium (Dok) 100 Mg Cap 100 MG PO BID for Constipation for 14 Days, #28 CAP Oxycodone HCl/Acetaminophen (Oxycodone-Acetaminophen 5-325) 5 Mg-325 Mg Tablet 2 TAB PO Q4H PRN for PAIN SCALE 7 TO 10 for 7 Days, #84 TAB 0 Refills Continued Medications: Amlodipine-Olmesartan (Antonio) 5-40 Mg Tab 1 TAB PO DAILY for Blood Pressure Management, #30 TAB [address] (Aspirin EC) 325 Mg Tabdr 325 MG PO DAILY, TAB 0 Refills Atorvastatin (Atorvastatin) 40 Mg Tab 40 MG PO HS for Cholesterol Management, #30 TAB 0 Refills Clopidogrel (Clopidogrel) 75 Mg Tab 75 MG PO DAILY for Blood Clot Prevention, #30 TAB 0 Refills Glipizide ER (Glipizide XL) 5 Mg Gregorio 5 MG PO DAILY for Blood Sugar Management, #30 TAB 0 Refills Take with breakfast or first main meal of the day Lutein (Lutein) 20 Mg Cap 25 MG PO HS for Nutritional Supplement, CAP 0 Refills Metoprolol Tartrate (Metoprolol Tartrate) 100 Mg Tab 100 MG PO DAILY, #30 TAB 0 Refills Discontinued Medications: Aspirin DR (Aspirin 81) 81 Mg Tabdr 81 MG PO DAILY, TAB 0 Refills Hydrocodone-Acetaminophen (Hydrocodone-Acetaminophen) 7.5-325 mg Tab 0.5 TAB PO Q6H PRN for PAIN, TAB 0 Refills Tolterodine ER (Tolterodine ER) 4 Mg Cap 4 MG PO HS for Urinary Symptom Managemen, #30 CAP 0 Refills Chay Sadler MD Oct 27, 2017 12:40
[2017-10-27 13:12] LABS: HEMOGLOBIN A1a 2.3 %; HEMOGLOBIN Ao 4.8 %; HEMOGLOBIN F 7.4 %; HEMOGLOBIN P3 4.8 %
== END 2017-10-27 14:46 | disposition home or self-care (01) | DRG 661 ==
LOC: HSDI 10-24 05:15 → N03B 10-24 12:50 → N07B 10-26 16:35
PROVIDERS: ADMIT Urology; ATTEND Urology
PROC: 8E0W4CZ Robotic Assisted Procedure of Trunk Region, Percutaneous Endoscopic Approach (ICD-10-PCS; 2017-10-24)
PROC: 0TT14ZZ Resection of Left Kidney, Percutaneous Endoscopic Approach (ICD-10-PCS; principal; 2017-10-24 07:30)
DX: N28.89 Other specified disorders of kidney and ureter (principal); E11.9 Type 2 diabetes mellitus without complications; D64.9 Anemia, unspecified; I10 Essential (primary) hypertension; E78.5 Hyperlipidemia, unspecified; Z79.84 Long term (current) use of oral hypoglycemic drugs; I25.2 Old myocardial infarction; I25.10 Atherosclerotic heart disease of native coronary artery without angina pectoris; Z95.5 Presence of coronary angioplasty implant and graft; Z79.02 Long term (current) use of antithrombotics/antiplatelets; G47.33 Obstructive sleep apnea (adult) (pediatric); K21.9 Gastro-esophageal reflux disease without esophagitis; N39.41 Urge incontinence
CPT/HCPCS: 80048; 80053; 82948; 83036; 83735; 84100; 84439; 84443; 85025; 85027; 85610; 86850; 86900; 86901; 86920; 87641; 88307; 88341; 88342; 94150; C9113; J0131; J0171; J0360; J0690; J1100; J1815; J2270; J2405; J3010; J7030; J7040; J7120

== ENCOUNTER 2017-11-11 13:38 | Inpatient (IN) | payer MEDICARE, OTHER ==
[~2017-11-11] VITALS: Ht 152.4 cm; Wt 73.7 kg
[~2017-11-11 13:38] MED LIST changes: +DOCU1CAP39 PO; -HYDR-3580 PO; +OXYC1TAB63 PO; -TOLT1CAP PO
[2017-11-11 13:42] VITALS: BP 215/88; PULSE 98; RESP 18; TEMP 98; O2SAT 100
[2017-11-11 13:54] VITALS: BP 205/81; PULSE 91; RESP 18; TEMP 98.3; O2SAT 99
[2017-11-11] MEDS ORDERED: SOD PHOSPHATE/SOD BIPHOSPHATE (ADULT) ENEMA 133ML RECTAL ONE (14:15)
--- NOTE | 2017-11-11 14:45 | PD ---
HPI Chief Complaint: GI Complaint Time Seen by Provider: 13:47 Travel History International Travel<30 days: No Contact w/Intl Traveler<30days: No Traveled to known affect area: No History of Present Illness HPI 77yo F with PMH of HTN, sleep apnea, HLD, CAD, GERD, DM presents to the ED with pressure and pain in her rectum. Said she has not been able to have a bowel movement for 4 days. Said when she wiped, there was some bright red blood on the tissue. Denies any fever, chest pain, sob, n/v, abdominal pain. Pt was admitted 10/24/17-10/27/17 for elective left robotic radical nephrectomy due to left renal mass by Dr. Sadler. Pt said she has tried magnesium citrate but it did not work. She took the pills that her doctor gave. PFSH Past Medical History Arthritis: Yes Anxiety: No Depression: Yes Heart Rhythm Problems: No Cancer: No Cardiovascular Problems: Yes High Cholesterol: Yes Chest Pain: Yes Congestive Heart Failure: No Diabetes: Yes Patient Takes Glucophage: No Endocrine: Yes Gastrointestinal Disorders: Yes GERD: Yes Genitourinary: Yes Hepatitis: No Hiatal Hernia: No Hypertension: Yes Immune Disorder: No Kidney Stones: No Musculoskeletal: Yes Neurologic: No Psychiatric: No Reproductive: No Respiratory: No Renal Failure: No Thyroid Disease: No Ulcer: No Past Surgical History Abdominal Surgery: Yes (APPENDECTOMY 2006) AICD: No Arteriovenous Shunt: No Cardiac Surgery: Yes (STENTS X2 2003) Ear Surgery: No Endocrine Surgery: No Eye Surgery: Yes (CATARACT 2000) Genitourinary Surgery: No Gynecologic Surgery: Yes (HYSTERECTOMY 1976) Insulin Pump: No Joint Replacement: No Neurologic Surgery: No Oral Surgery: Yes (DENTAL IMPLANTS 2014) Pacemaker: No Thoracic Surgery: No Other Surgery: Yes (L kidney removal) Social History Alcohol Use: No Tobacco Use: No Substance Use: No Allergies-Medications (Allergen,Severity, Reaction): Coded Allergies: codeine (Verified Allergy, Severe, NAUSEA/VOMITING, 11/11/17) Reported Meds & Prescriptions Reported Meds & Active Scripts Active Dok (Docusate Sodium) 100 Mg Cap 100 Mg PO BID 14 Days Oxycodone-Acetaminophen 5-325 (Oxycodone HCl/Acetaminophen) 5 Mg-325 Mg Tablet 2 Tab PO Q4H PRN 7 Days Reported Lutein 20 Mg Cap 25 Mg PO HS Aspirin EC (Aspirin) 325 Mg Tabdr 325 Mg PO DAILY Clopidogrel (Clopidogrel Bisulfate) 75 Mg Tab 75 Mg PO DAILY Glipizide XL (Glipizide) 5 Mg Gregorio 5 Mg PO DAILY Take with breakfast or first main meal of the day Atorvastatin (Atorvastatin Calcium) 40 Mg Tab 40 Mg PO HS Metoprolol Tartrate 100 Mg Tab 100 Mg PO DAILY Antonio (Amlodipine-Olmesartan) 5-40 Mg Tab 1 Tab PO DAILY Review of Systems Except as stated in HPI: all other systems reviewed are Neg Physical Exam Narrative GENERAL: 77yo F in moderate distress. SKIN: Focused skin assessment warm/dry. HEAD: Atraumatic. Normocephalic. EYES: Pupils equal and round. No scleral icterus. No injection or drainage. ENT: No nasal bleeding or discharge. Mucous membranes pink and moist. NECK: Trachea midline. No JVD. CARDIOVASCULAR: Regular rate and rhythm. No murmur appreciated. RESPIRATORY: No accessory muscle use. Clear to auscultation. Breath sounds equal bilaterally. GASTROINTESTINAL: Abdomen soft, non-tender, nondistended. Surgical wounds c/d/i with no bleeding or erythema. No discharge. RECTAL: +External hemorrhoids, soft, not tender to palpation. +Large hard stool felt on rectal exam. Yellow stool. MUSCULOSKELETAL: No obvious deformities. No clubbing. No cyanosis. No edema. NEUROLOGICAL: Awake and alert. No obvious cranial nerve deficits. Motor grossly within normal limits. Normal speech. PSYCHIATRIC: Appropriate mood and affect; insight and judgment normal. Data Data Last Documented VS Vital Signs Date Time Temp Pulse Resp B/P (MAP) Pulse Ox O2 Delivery O2 Flow Rate FiO2 11/11/17 19:30 90 16 180/79 (112) 98 Room Air 11/11/17 13:54 98.3 Orders Orders Fleets Enema (Adult) (Fleets Enema (Adul (11/11/17 14:15) Complete Blood Count With Diff (11/11/17 14:36) Basic Metabolic Panel (Bmp) (11/11/17 14:36) Ct Abd/Pel W/O Iv Contrast (11/11/17 ) Urinalysis - C+S If Indicated (11/11/17 15:51) Urine Culture (11/11/17 17:12) Ceftriaxone Inj (Rocephin Inj) (11/11/17 19:30) Admit Order (Ed Use Only) (11/11/17 19:30) Labs Laboratory Tests Test 11/11/17 14:30 11/11/17 17:12 White Blood Count 18.3 TH/MM3 Red Blood Count 4.82 MIL/MM3 Hemoglobin 10.5 GM/DL Hematocrit 31.8 % Mean Corpuscular Volume 65.9 FL Mean Corpuscular Hemoglobin 21.9 PG Mean Corpuscular Hemoglobin Concent 33.2 % Red Cell Distribution Width 18.1 % Platelet Count 303 TH/MM3 Mean Platelet Volume 7.9 FL Neutrophils (%) (Auto) 92.5 % Lymphocytes (%) (Auto) 4.0 % Monocytes (%) (Auto) 3.1 % Eosinophils (%) (Auto) 0.1 % Basophils (%) (Auto) 0.3 % Neutrophils # (Auto) 16.9 TH/MM3 Lymphocytes # (Auto) 0.7 TH/MM3 Monocytes # (Auto) 0.6 TH/MM3 Eosinophils # (Auto) 0.0 TH/MM3 Basophils # (Auto) 0.1 TH/MM3 CBC Comment DIFF FINAL Differential Comment Blood Urea Nitrogen 24 MG/DL Creatinine 1.44 MG/DL Random Glucose 229 MG/DL Calcium Level 9.6 MG/DL Sodium Level 139 MEQ/L Potassium Level 4.6 MEQ/L Chloride Level 107 MEQ/L Carbon Dioxide Level 23.1 MEQ/L Anion Gap 9 MEQ/L Estimat Glomerular Filtration Rate 35 ML/MIN Urine Color YELLOW Urine Turbidity HAZY Urine pH 7.0 Urine Specific [place] 1.018 Urine Protein TRACE mg/dL Urine Glucose (UA) 150 mg/dL Urine Ketones NEG mg/dL Urine Occult Blood SMALL Urine Nitrite NEG Urine Bilirubin NEG Urine Urobilinogen LESS THAN 2.0 MG/DL Urine Leukocyte Esterase SMALL Urine RBC 2 /hpf Urine WBC 8 /hpf Urine Squamous Epithelial Cells 2 /hpf Urine Calcium Oxalate Crystals RARE /hpf Urine Bacteria MANY /hpf Urine Hyaline Casts 1 /lpf Urine Mucus FEW /lpf Microscopic Urinalysis Comment CULTURE INDICATED MDM Medical Decision Making Medical Screen Exam Complete: Yes Emergency Medical Condition: Yes Differential Diagnosis Constipation vs. diverticulitis vs. abscess Narrative Course 77yo F with constipation for 4 days. Feels pain and pressure in her rectum. Recent nephrectomy and followed up with Dr. Sadler yesterday. Pt's surgical sites look well healed with no signs of infection. Abdomen not tender. Labs reviewed, leukocytosis at 18.3. H/H 10.5/31.8 better than baseline. BUN/ creatinine mildly elevated at 24/1.44 but more elevated than prior and pt has only one kidney. Glucose 229 but normal anion gap. UA showed small leukocyte. Many bacteria. Pt has increased urinary frequency so will treat. Pt given ceftriaxone. CT a/p showed status post left nephrectomy with mild stranding in nephrectomy bed without focal mass. Mild stranding medial left paracolic gutter. Adjacent colon dose not appear significantly inflamed. Suspect postop change or early developing diverticulitis. Moderate amount of stool. CT was completed after manual disimpaction of stool so it was more before. Pt did not have a bowel movement after fleet enema so did manually disimpact and now able to have bowel movement and feels better. Discussed with Dr. Marinelli and accepted to her service for diverticulitis/UTI/JENA. Procedures Procedure Narrative Manual disimpaction of stool: Copious amount of yellow stool evacuated from rectum with relief of pain. Pt tolerated procedure well. Sepsis Criteria SIRS Criteria (2 or more): Heart rate over 90, WBC > 31148, < 4000 or > 10% bands Diagnosis Primary Impression: UTI (urinary tract infection) Qualified Codes: N39.0 - Urinary tract infection, site not specified; R31.9 - Hematuria, unspecified Additional Impression: Sepsis Qualified Codes: A41.9 - Sepsis, unspecified organism Admitting Information Admitting Physician Requests: Enid Tim DO Nov 11, 2017 14:44
[2017-11-11 15:29] LABS: AUTOMATED NEUTROPHIL # 16.9 TH/MM3 (1.8-7.7); BASOPHIL # 0.1 TH/MM3 (0-0.2); BASOPHIL % 0.3 % (0.0-2.0); EOSINOPHIL % 0.1 % (0.0-4.0); HEMATOCRIT 31.8 % (35.0-46.0); HEMO FLAGS DIFF FINAL; LYMPHOCYTE # 0.7 TH/MM3 (1.0-4.8); MEAN CELL VOLUME 65.9 FL (80.0-100.0); MEAN CORPUSCULAR HEMOGLOBIN 21.9 PG (27.0-34.0); MEAN CORPUSCULAR HGB CONC 33.2 % (32.0-36.0); MONO % 3.1 % (0.0-8.0); NEUT % 92.5 % (16.0-70.0); PLATELET COUNT 303 TH/MM3 (150-450); RED BLOOD COUNT 4.82 MIL/MM3 (4.00-5.30); RED CELL DISTRIBUTION WIDTH 18.1 % (11.6-17.2); WHITE BLOOD COUNT 18.3 TH/MM3 (4.0-11.0)
[2017-11-11 15:34] LABS: BICARBONATE 23.1 MEQ/L (21.0-32.0); POTASSIUM 4.6 MEQ/L (3.5-5.1)
--- NOTE | 2017-11-11 17:09 | RADRPT ---
EXAM DATE/TIME: 11/11/2017 16:36 [facility] COMPARISON: No previous studies available for comparison. INDICATIONS : Rectal pain and constipation for four days. ORAL CONTRAST: No oral contrast ingested. RADIATION DOSE: 6.64 CTDIvol (mGy) MEDICAL HISTORY : Hypertension. Gastroesophageal reflux disease. Gastroesophageal reflux disease. SURGICAL HISTORY : nephrectomy ENCOUNTER: Initial ACUITY: 4 - 6 days PAIN SCALE: 6/10 LOCATION: Bilateral rectum TECHNIQUE: Volumetric scanning of the abdomen and pelvis was performed. Using automated exposure control and ad justment of the mA and/or kV according to patient size, radiation dose was kept as low as reasonably achievable to obtain optimal diagnostic quality images. DICOM format image data is available electro nically for review and comparison. FINDINGS: LOWER LUNGS: Trace left pleural effusion at the base. LIVER: Numerous subcentimeter hypodense lesions in both lobes of the liver which are too small to fully jennifer acterize. However, the larger lesions measure simple fluid in density. Multiple gallstones in the gal lbladder which otherwise appears unremarkable by CT. SPLEEN: Normal size without lesion. PANCREAS: Within normal limits. KIDNEYS: Left kidney is surgically absent. Mild stranding in the nephrectomy bed without focal mass. Right kid lukasz is normal in appearance without evidence for hydronephrosis or radiopaque renal calculi. ADRENAL GLANDS: Within normal limits. VASCULAR: Moderate vascular calcifications without aortic aneurysm. BOWEL/MESENTERY: Small to moderate amount of stool in the rectum. There is subtle inflammatory stranding along the med ial left paracolic gutter without a definite epicenter or significant colonic diverticula. There is m ild sigmoid diverticulosis. Bowel otherwise appears unremarkable. No significant drainable fluid amy ection or free fluid. ABDOMINAL WALL: Mild stranding and small foci of air in the left subcutaneous soft tissues likely from subcutaneous i njections. RETROPERITONEUM: There is no lymphadenopathy. BLADDER: No wall thickening or mass. REPRODUCTIVE: Uterus is not visualized and may be surgically absent. INGUINAL: There is no lymphadenopathy or hernia. MUSCULOSKELETAL: Degenerative spondylosis of the lumbar spine. CONCLUSION: 1. Status post left nephrectomy with mild stranding in the nephrectomy bed without focal mass. 2. There is mild stranding along the medial left paracolic gutter which extends from the caudal porti on of the nephrectomy bed to the pelvis. Adjacent colon does not appear significantly inflamed. Suspe ct this reflects postoperative change although early developing diverticulitis may have a similar jose earance. 3. Small to moderate amount of stool in the rectum with mild sigmoid diverticulosis. 4. Small foci of air and mild stranding in the left subcutaneous anterior abdominal soft tissues like ly secondary to subcutaneous injections. 5. Trace left pleural effusion and left base, likely chronic. 6. Numerous hypodense lesions throughout the liver which are too small to fully characterize, as abov e. 7. Cholelithiasis. Balaji Dvaid MD on November 11, 2017 at 16:59 Board Certified Radiologist. This report was verified electronically.
[2017-11-11 17:39] VITALS: BP 149/67; PULSE 95; RESP 18; O2SAT 96
[2017-11-11 18:13] LABS: BACTERIA, URINE MANY /hpf; BLOOD, URINE SMALL (NEG); CALCIUM OXALATE CRYSTALS,URINE RARE /hpf; COMMENT (UR) CULTURE INDICATED; CULTURE IF INDICATED CULTURE INDICATED; GLUCOSE,URINE 150 mg/dL (NEG); HYALINE CAST, URINE 1 /lpf (RARE); KETONE, URINE NEG (NEG); MUCUS URINE FEW /lpf (OCC); NITRITE,URINE NEG (NEG); SQUAMOUS EPITHELIAL CELL URINE 2 /hpf (0-5); URINE COLOR YELLOW (YELLW/STRAW)
[2017-11-11 19:30] VITALS: BP 180/79; PULSE 90; RESP 16; O2SAT 98
[2017-11-11] MEDS ORDERED: cefTRIAXone INJ 1,000 MG in SODIUM CHLORIDE 0.9% INJ 100 ML IV ONE (19:30)
[2017-11-11] MEDS ORDERED: SENNOSIDES 8.6 MG TAB PO PRN (19:45)
[2017-11-11] MEDS ORDERED: LACTULOSE SYRUP 20 GM/30 ML CUP PO PRN (19:45)
[2017-11-11] MEDS ORDERED: ACETAMINOPHEN 325 MG TAB PO PRN (19:45)
[2017-11-11] MEDS ORDERED: MAGNESIUM HYDROXIDE SUSP 30 ML CUP PO PRN (19:45)
[2017-11-11] MEDS ORDERED: BISACODYL 10 MG SUPP RECTAL PRN (19:45)
[2017-11-11] MEDS ORDERED: SODIUM CHLORIDE 0.9% FLUSH 10 ML FLUSH IV FLUSH PRN (19:45)
[2017-11-11] MEDS ORDERED: GLUCAGON 1 MG/ML VIAL OTHER PRN (19:45)
[2017-11-11] MEDS ORDERED: ONDANSETRON HCL 4 MG/2 ML VIAL IVP PRN (19:45)
[2017-11-11] MEDS ORDERED: DEXTROSE 50% IN WATER 50 ML VIAL(D50) IV PUSH PRN (19:45)
--- NOTE | 2017-11-11 19:48 | HHI.HP ---
HPI [facility] Primary Care Physician No Primary Care Physician Admission Diagnosis UTI, sepsis, possible diverticulitis Diagnoses: (1) Diverticulitis Diagnosis: Principal (2) UTI (urinary tract infection) Diagnosis: Principal (3) JENA (acute kidney injury) Diagnosis: Principal (4) S/p nephrectomy Diagnosis: Principal (5) HTN (hypertension) Diagnosis: Principal (6) DM (diabetes mellitus) Diagnosis: Principal Travel History International Travel<30 Days: No Contact w/Intl Traveler <30 Da: No Traveled to Known Affected Are: No History of Present Illness This is a 77-year-old female with a PMH of HTN, s/p Left Nephrectomy for Renal Mass 10/24/[address] Sadler, Hyperlipidemia, CAD and DM who presented to the ER w / complaints of abdominal pain and "soreness" x4 days. Also reports constipation x3-4 days. States she was seen in office by Dr. Sadler this week w / normal exam. Denies fever, chills, nausea/vomiting or diarrhea. On arrival, BPT to 15/88, HR 98, O2 sat 100% on RA, Afebrile. WBC 18.3. Creatinine 1.44, previously 1.07 on 10/27/17. UA positive for UTI. CT Abd/Pelvis w/ left nephrectomy, mild stranding in the nephrectomy bed without focal mass, possible early diverticulitis, small to moderate amount of stool in the rectum. S/p Rocephin in ER. Review of Systems Except as stated in HPI: all other systems reviewed are Neg ROS: 14 point review of systems otherwise negative. Past Family Social History Past Medical History PMH: HTN, s/p Left Nephrectomy for Renal Mass 10/24/[address] Sadler, Hyperlipidemia, CAD and DM Past Surgical History PAST SURGICAL HISTORY: Appendectomy, Cardiac Stent, Cataract Surgery, Hysterectomy, Left Nephrectomy Allergies: Coded Allergies: codeine (Verified Allergy, Severe, NAUSEA/VOMITING, 11/11/17) Family History PAST FAMILY HISTORY: Reviewed. No h/o DM or CAD Social History PAST SOCIAL HISTORY: Negative for alcohol, tobacco or drugs. Physical Exam Vital Signs Vital Signs Date Time Temp Pulse Resp B/P (MAP) Pulse Ox O2 Delivery O2 Flow Rate FiO2 11/11/17 19:30 90 16 180/79 (112) 98 Room Air 11/11/17 17:39 95 18 149/67 (94) 96 Room Air 11/11/17 13:54 98.3 91 18 205/81 (122) 99 Room Air 11/11/17 13:42 98.0 98 18 215/88 (130) 100 Physical Exam PE: GENERAL: Very pleasant elderly female in no acute distress. HEENT: PERRLA, EOMI. No scleral icterus or conjunctival pallor. No lid lag or facial droop. CARDIOVASCULAR: Regular rate and rhythm. No obvious murmurs to auscultation. No chest tenderness to palpation. RESPIRATORY: No obvious rhonchi or wheezing. Clear to auscultation. Breath sounds equal bilaterally. GASTROINTESTINAL: Abdomen soft, non-tender, nondistended. BS normal. Surgical wound intact, no surrounding erythema. MUSCULOSKELETAL: Extremities without clubbing, cyanosis, or edema. No obvious deformities. NEUROLOGICAL: Awake, alert and oriented x4. No focal neurologic deficits. Moving both upper and lower extremities spontaneously. Laboratory Laboratory Tests Test 11/11/17 14:30 11/11/17 17:12 White Blood Count 18.3 Red Blood Count 4.82 Hemoglobin 10.5 Hematocrit 31.8 Mean Corpuscular Volume 65.9 Mean Corpuscular Hemoglobin 21.9 Mean Corpuscular Hemoglobin Concent 33.2 Red Cell Distribution Width 18.1 Platelet Count 303 Mean Platelet Volume 7.9 Neutrophils (%) (Auto) 92.5 Lymphocytes (%) (Auto) 4.0 Monocytes (%) (Auto) 3.1 Eosinophils (%) (Auto) 0.1 Basophils (%) (Auto) 0.3 Neutrophils # (Auto) 16.9 Lymphocytes # (Auto) 0.7 Monocytes # (Auto) 0.6 Eosinophils # (Auto) 0.0 Basophils # (Auto) 0.1 CBC Comment DIFF FINAL Differential Comment Blood Urea Nitrogen 24 Creatinine 1.44 Random Glucose 229 Calcium Level 9.6 Sodium Level 139 Potassium Level 4.6 Chloride Level 107 Carbon Dioxide Level 23.1 Anion Gap 9 Estimat Glomerular Filtration Rate 35 Urine Color YELLOW Urine Turbidity HAZY Urine pH 7.0 Urine Specific [place] 1.018 Urine Protein TRACE Urine Glucose (UA) 150 Urine Ketones NEG Urine Occult Blood SMALL Urine Nitrite NEG Urine Bilirubin NEG Urine Urobilinogen LESS THAN 2.0 Urine Leukocyte Esterase SMALL Urine RBC 2 Urine WBC 8 Urine Squamous Epithelial Cells 2 Urine Calcium Oxalate Crystals RARE Urine Bacteria MANY Urine Hyaline Casts 1 Urine Mucus FEW Microscopic Urinalysis Comment CULTURE INDICATED Date/Time Source Procedure Growth Status 11/11/17 17:12 Urine Clean Catch Urine Culture Pending Received Result Diagram: 11/11/17 1430 11/11/17 1430 Caprini VTE Risk Assessment Caprini VTE Risk Assessment: No/Low Risk (score <= 1) Caprini Risk Assessment Model Point Value = 1 Point Value = 2 Point Value = 3 Point Value = 5 Age 41-60 Minor surgery BMI > 25 kg/m2 Swollen legs Varicose veins or History of unexplained or recurrent spontaneous Oral contraceptives or hormone replacement Sepsis (< 1 month) Serious lung disease, including pneumonia (< 1 month) Abnormal pulmonary function Acute myocardial infarction Congestive heart failure (< 1 month) History of inflammatory bowel disease Medical patient at bed rest Age 61-74 Arthroscopic surgery Major open surgery (> 45 min) Laparoscopic surgery (> 45 min) Malignancy Confined to bed (> 72 hours) Immobilizing plaster cast Central venous access Age >= 75 History of VTE Family history of VTE Factor V Leiden Prothrombin [id number] Lupus anticoagulant Anticardiolipin antibodies Elevated serum homocysteine Heparin-induced thrombocytopenia Other congenital or acquired thrombophilia Stroke (< 1 month) Elective arthroplasty Hip, pelvis, or leg fracture Acute spinal cord injury (< 1 month) Prophylaxis Regimen Total Risk Factor Score Risk Level Prophylaxis Regimen 0-1 Low Early ambulation 2 Moderate Order ONE of the following: *Sequential Compression Device (SCD) *Heparin 5000 units SQ BID 3-4 Higher Order ONE of the following medications: *Heparin 5000 units SQ TID *Enoxaparin/Lovenox 40 mg SQ daily (WT < 150 kg, CrCl > 30 mL/min) *Enoxaparin/Lovenox 30 mg SQ daily (WT < 150 kg, CrCl > 10-29 mL/min) *Enoxaparin/Lovenox 30 mg SQ BID (WT < 150 kg, CrCl > 30 mL/min) AND/OR *Sequential Compression Device (SCD) 5 or more Highest Order ONE of the following medications: *Heparin 5000 units SQ TID (Preferred with Epidurals) *Enoxaparin/Lovenox 40 mg SQ daily (WT < 150 kg, CrCl > 30 mL/min) *Enoxaparin/Lovenox 30 mg SQ daily (WT < 150 kg, CrCl > 10-29 mL/min) *Enoxaparin/Lovenox 30 mg SQ BID (WT < 150 kg, CrCl > 30 mL/min) AND *Sequential Compression Device (SCD) Assessment and Plan Problem List: (1) Diverticulitis ICD Code: K57.92 - Diverticulitis of intestine, part unspecified, without perforation or abscess without bleeding (2) UTI (urinary tract infection) ICD Code: N39.0 - Urinary tract infection, site not specified Status: Acute (3) JENA (acute kidney injury) ICD Code: N17.9 - Acute kidney failure, unspecified (4) S/p nephrectomy ICD Code: Z90.5 - Acquired absence of kidney (5) HTN (hypertension) ICD Code: I10 - Essential (primary) hypertension (6) DM (diabetes mellitus) ICD Code: E11.9 - Type 2 diabetes mellitus without complications Assessment and Plan A/P: 1. Diverticulitis: c/o abdominal pain x4 days w/ constipation. CT Abd/Pelvis w/ possible early diverticulitis and post op changes s/p nephrectomy, images reviewed by me. WBC 18. Will start Zosyn IV q6h, repeat labs in am. Analgesics/antiemetics as needed. 2. UTI: U/a w/ UTI, s/p Rocephin in ER, continue w/ IV Zosyn, follow up cultures. 3. JENA: Creatinine 1.44, previously 1.07 on 10/27/17. IVF for hydration, repeat labs in am. 4. Left Nephrectomy: S/p left nephrectomy secondary to renal mass, pathology positive for Renal Cell CA, following w/ Dr. Sadler. 5. HTN: BP 215/88, HR 98 on arrival, likely compounded by abdominal pain. BP currently 140/66, HR 84. Optimize pain control, monitor BP, resume home medications. 6. DM: Sliding scale w/ Accu-Cheks. Hold Glipizide until taking adequate PO. 7. DVT Prophylaxis: Heparin sq 8. Social work for d/c planning as needed. 9. Case discussed w/ ER physician at length Physician Certification 2 Midnight Certification Type: Admission for Inpatient Services Order for Inpatient Services The services are ordered in accordance with Medicare regulations or non- Medicare payer requirements, as applicable. In the case of services not specified as inpatient-only, they are appropriately provided as inpatient services in accordance with the 2-midnight benchmark. Estimated LOS (days): 2 days is the estimated time the patient will need to remain in the hospital, assuming treatment plan goals are met and no additional complications. Post-Hospital Plan: Not yet determined Problem Qualifiers (1) UTI (urinary tract infection): Qualified Codes: N39.0 - Urinary tract infection, site not specified; R31.9 - Hematuria, unspecified Edelmira Marinelli MD Nov 11, 2017 19:48
[2017-11-11 20:00] VITALS: BP 180/74; PULSE 85; RESP 16; TEMP 98.2; O2SAT 99
[2017-11-11] MEDS ORDERED: MORPHINE SULFATE 2 MG/ML INJ IV PRN (20:15)
[2017-11-11] MEDS: SODIUM CHLOR 0.9% 1000 ML INJ 1,000 ML IV SCH (20:17)
[2017-11-11 20:20] VITALS: BP 140/66; PULSE 84; RESP 20; O2SAT 99
[2017-11-11] MEDS: PIPERACIL-TAZO 3.375 GM PREMIX 50 ML IV SCH (20:20)
[2017-11-11] MEDS: SODIUM CHLORIDE 0.9% FLUSH 10 ML FLUSH IV FLUSH SCH (20:25)
[2017-11-11] MEDS: ATORVASTATIN 40 MG TAB PO SCH (20:31)
[2017-11-11] MEDS: DOCUSATE SODIUM 50 MG/SENNA 8.6 MG TAB PO SCH (20:31)
[2017-11-11] MEDS: INSULIN ASPART SUPPLEMENTAL SCALE SQ SCH (20:34)
[2017-11-12] VITALS: BP 128/62; PULSE 82; RESP 16; TEMP 97.8; O2SAT 96
[2017-11-12] MEDS: cloNIDine HCL 0.1 MG TAB PO PRN (00:34)
[2017-11-12] MEDS: PIPERACIL-TAZO 3.375 GM PREMIX 50 ML IV SCH ×2 (03:06→09:45)
[2017-11-12] MEDS: SODIUM CHLOR 0.9% 1000 ML INJ 1,000 ML IV SCH ×2 (05:22→17:11)
[2017-11-12 07:52] LABS: AUTOMATED NEUTROPHIL # 11.1 TH/MM3 (1.8-7.7); BASOPHIL % 0.3 % (0.0-2.0); EOSINOPHIL % 0.2 % (0.0-4.0); HEMATOCRIT 26.4 % (35.0-46.0); HEMO FLAGS DIFF FINAL; LYMPH % 8.6 % (9.0-44.0); LYMPHOCYTE # 1.1 TH/MM3 (1.0-4.8); MEAN CELL VOLUME 65.2 FL (80.0-100.0); MEAN CORPUSCULAR HEMOGLOBIN 21.5 PG (27.0-34.0); MEAN CORPUSCULAR HGB CONC 32.9 % (32.0-36.0); MONO % 5.7 % (0.0-8.0); NEUT % 85.2 % (16.0-70.0); PLATELET COUNT 260 TH/MM3 (150-450); RED BLOOD COUNT 4.04 MIL/MM3 (4.00-5.30); RED CELL DISTRIBUTION WIDTH 17.7 % (11.6-17.2)
[2017-11-12 08:00] VITALS: BP 173/74; PULSE 80; RESP 17; TEMP 97.6; O2SAT 94
[2017-11-12] MEDS: INSULIN ASPART SUPPLEMENTAL SCALE SQ SCH ×4 (08:00→20:41)
[2017-11-12 08:22] LABS: ALKALINE PHOSPHATASE 65 U/L (45-117); ALT (GPT) 20 U/L (10-53); ANION GAP 8 MEQ/L (5-15); AST (GOT) 9 U/L (15-37); BICARBONATE 24.2 MEQ/L (21.0-32.0); BLOOD UREA NITROGEN 17 MG/DL (7-18); CHLORIDE 110 MEQ/L (98-107); GLOMERULAR FILTRATION RATE 45 ML/MIN (>89); SODIUM (NA) 142 MEQ/L (136-145); TOTAL BILIRUBIN ADULT 0.7 MG/DL (0.2-1.0)
[2017-11-12] MEDS: SODIUM CHLORIDE 0.9% FLUSH 10 ML FLUSH IV FLUSH SCH ×2 (09:00→20:42)
[2017-11-12] MEDS: DOCUSATE SODIUM 50 MG/SENNA 8.6 MG TAB PO SCH ×2 (09:46→20:41)
[2017-11-12] MEDS: LOSARTAN 50 MG TAB PO SCH (09:46)
[2017-11-12] MEDS: METOPROLOL TARTRATE 100 MG TAB PO SCH (09:46)
[2017-11-12] MEDS: HEPARIN SODIUM - SQ 10,000 UNITS/ML VIAL SQ SCH ×2 (09:46→20:41)
[2017-11-12] MEDS: amLODIPine BESYLATE 5 MG TAB PO SCH (09:46)
[2017-11-12] MEDS: CLOPIDOGREL 75 MG TAB PO SCH (09:47)
[2017-11-12] MEDS: ASPIRIN EC 325 MG TABEC PO SCH (09:47)
--- NOTE | 2017-11-12 11:36 | HHI.PR ---
Subjective Remarks Follow-up diverticulitis/UTI/constipation 11/12/17-patient seen and examined, reports some improvement of abdominal pain, states she has multiple small bowel movements. Denies any nausea or vomiting. Currently afebrile. Objective Vitals Vital Signs Date Time Temp Pulse Resp B/P (MAP) Pulse Ox O2 Delivery O2 Flow Rate FiO2 11/12/17 08:00 97.6 80 17 173/74 (107) 94 11/12/17 00:00 97.8 82 16 128/62 (84) 96 11/11/17 21:06 11/11/17 20:20 84 20 140/66 (90) 99 Room Air 11/11/17 20:00 98.2 85 16 180/74 (109) 99 11/11/17 19:30 90 16 180/79 (112) 98 Room Air 11/11/17 17:39 95 18 149/67 (94) 96 Room Air 11/11/17 13:54 98.3 91 18 205/81 (122) 99 Room Air 11/11/17 13:42 98.0 98 18 215/88 (130) 100 I/O 11/11/17 11/11/17 11/11/17 11/12/17 11/12/17 11/12/17 07:00 15:00 23:00 07:00 15:00 23:00 Intake Total 150 ml 1650 ml Balance 150 ml 1650 ml Intake Oral 600 ml IV Total 150 ml 1050 ml # Voids 2 # Bowel Movements 2 Result Diagram: 11/12/17 0630 11/12/17 0630 Imaging Last Impressions Abdomen/Pelvis CT 11/11/17 0000 Signed Impressions: Service Date/Time: Saturday, November 11, 2017 16:36 - CONCLUSION: 1. Status post left nephrectomy with mild stranding in the nephrectomy bed without focal mass. 2. There is mild stranding along the medial left paracolic gutter which extends from the caudal portion of the nephrectomy bed to the pelvis. Adjacent colon does not appear significantly inflamed. Suspect this reflects postoperative change although early developing diverticulitis may have a similar appearance. 3. Small to moderate amount of stool in the rectum with mild sigmoid diverticulosis. 4. Small foci of air and mild stranding in the left subcutaneous anterior abdominal soft tissues likely secondary to subcutaneous injections. 5. Trace left pleural effusion and left base, likely chronic. 6. Numerous hypodense lesions throughout the liver which are too small to fully characterize, as above. 7. Cholelithiasis. Balaji David MD Objective Remarks GENERAL: nad SKIN: Warm and dry. HEAD: Normocephalic. EYES: No scleral icterus. No injection or drainage. NECK: Supple, trachea midline. No JVD or lymphadenopathy. CARDIOVASCULAR: Regular rate and rhythm without murmurs, gallops, or rubs. RESPIRATORY: Breath sounds equal bilaterally. No accessory muscle use. GASTROINTESTINAL: Abdomen soft, non-tender, nondistended. MUSCULOSKELETAL: No cyanosis, or edema. BACK: Nontender without obvious deformity. No CVA tenderness. A/P Problem List: (1) Diverticulitis ICD Code: K57.92 - Diverticulitis of intestine, part unspecified, without perforation or abscess without bleeding (2) UTI (urinary tract infection) ICD Code: N39.0 - Urinary tract infection, site not specified Status: Acute (3) JENA (acute kidney injury) ICD Code: N17.9 - Acute kidney failure, unspecified (4) S/p nephrectomy ICD Code: Z90.5 - Acquired absence of kidney (5) HTN (hypertension) ICD Code: I10 - Essential (primary) hypertension (6) DM (diabetes mellitus) ICD Code: E11.9 - Type 2 diabetes mellitus without complications Assessment and Plan 77-year-old female with 1. Diverticulitis: CT Abd/Pelvis w/ possible early diverticulitis and post op changes s/p nephrectom. Currently on Zosyn IV q6h pending culture report. Analgesics/antiemetics as needed. 2. UTI: U/a w/ UTI, s/p Rocephin in ER, continue w/ IV Zosyn pending culture report 3. JENA: Improving with IVF for hydration. Monitor BUN/creatinine 4. Left Nephrectomy: S/p left nephrectomy secondary to renal mass, pathology positive for Renal Cell CA, following w/ Dr. Sadler. 5. HTN: Continue outpatient medications and Optimize pain control, monitor BP , 6. DM: Sliding scale w/ Accu-Cheks. Continue to Hold Glipizide until taking adequate PO. 7. DVT Prophylaxis: Heparin sq Problem Qualifiers (1) UTI (urinary tract infection): Qualified Codes: N39.0 - Urinary tract infection, site not specified; R31.9 - Hematuria, unspecified Enzo Duffy MD Nov 12, 2017 11:36
[2017-11-12 12:00] VITALS: BP 139/60; PULSE 72; RESP 16; TEMP 97.1; O2SAT 95
[2017-11-12] MEDS: PIPERACIL-TAZO 2.25 GM PREMIX 50 ML IV SCH ×2 (14:00→20:42)
[2017-11-12 16:00] VITALS: BP 157/71; PULSE 71; RESP 17; TEMP 97; O2SAT 98
[2017-11-12] MEDS: ATORVASTATIN 40 MG TAB PO SCH (20:41)
[2017-11-12 21:44] VITALS: BP 138/63; PULSE 75; RESP 18; TEMP 98.9; O2SAT 95
[2017-11-13] VITALS: BP 180/80; PULSE 75; RESP 18; TEMP 98.1; O2SAT 93
[2017-11-13] MEDS: cloNIDine HCL 0.1 MG TAB PO PRN (00:22)
[2017-11-13] MEDS: PIPERACIL-TAZO 2.25 GM PREMIX 50 ML IV SCH ×3 (03:26→13:34)
[2017-11-13 04:29] VITALS: BP 156/71; PULSE 67
[2017-11-13] MEDS: SODIUM CHLOR 0.9% 1000 ML INJ 1,000 ML IV SCH (04:30)
[2017-11-13 07:05] LABS: AUTOMATED NEUTROPHIL # 5.4 TH/MM3 (1.8-7.7); BASOPHIL % 0.4 % (0.0-2.0); EOSINOPHIL # 0.3 TH/MM3 (0-0.4); EOSINOPHIL % 3.4 % (0.0-4.0); HEMATOCRIT 26.7 % (35.0-46.0); HEMO FLAGS DIFF FINAL; LYMPH % 17.9 % (9.0-44.0); LYMPHOCYTE # 1.4 TH/MM3 (1.0-4.8); MEAN CELL VOLUME 65.5 FL (80.0-100.0); MEAN CORPUSCULAR HEMOGLOBIN 21.8 PG (27.0-34.0); MEAN CORPUSCULAR HGB CONC 33.2 % (32.0-36.0); MONO % 7.1 % (0.0-8.0); NEUT % 71.2 % (16.0-70.0); PLATELET COUNT 235 TH/MM3 (150-450); RED BLOOD COUNT 4.08 MIL/MM3 (4.00-5.30); RED CELL DISTRIBUTION WIDTH 17.5 % (11.6-17.2); WHITE BLOOD COUNT 7.7 TH/MM3 (4.0-11.0)
[2017-11-13 07:11] LABS: ALT (GPT) 19 U/L (10-53); ANION GAP 7 MEQ/L (5-15); AST (GOT) 9 U/L (15-37); BICARBONATE 24.3 MEQ/L (21.0-32.0); BLOOD UREA NITROGEN 16 MG/DL (7-18); CHLORIDE 112 MEQ/L (98-107); GLOMERULAR FILTRATION RATE 39 ML/MIN (>89); POTASSIUM 3.9 MEQ/L (3.5-5.1); SODIUM (NA) 143 MEQ/L (136-145)
[2017-11-13 07:13] LABS: ALKALINE PHOSPHATASE 60 U/L (45-117); TOTAL BILIRUBIN ADULT 0.6 MG/DL (0.2-1.0)
[2017-11-13 08:00] VITALS: BP 186/74; PULSE 71; RESP 17; TEMP 97.2; O2SAT 97
[2017-11-13] MEDS: INSULIN ASPART SUPPLEMENTAL SCALE SQ SCH ×2 (08:00→12:21)
[2017-11-13] MEDS: SODIUM CHLORIDE 0.9% FLUSH 10 ML FLUSH IV FLUSH SCH (09:00)
[2017-11-13] MEDS: METOPROLOL TARTRATE 100 MG TAB PO SCH (09:52)
[2017-11-13] MEDS: ASPIRIN EC 325 MG TABEC PO SCH (09:52)
[2017-11-13] MEDS: LOSARTAN 50 MG TAB PO SCH (09:52)
[2017-11-13] MEDS: DOCUSATE SODIUM 50 MG/SENNA 8.6 MG TAB PO SCH (09:52)
[2017-11-13] MEDS: amLODIPine BESYLATE 5 MG TAB PO SCH (09:52)
[2017-11-13] MEDS: CLOPIDOGREL 75 MG TAB PO SCH (09:52)
[2017-11-13] MEDS: HEPARIN SODIUM - SQ 10,000 UNITS/ML VIAL SQ SCH (09:53)
[2017-11-13 12:00] VITALS: BP 130/61; PULSE 64; RESP 17; TEMP 96.5; O2SAT 97
[2017-11-13] MEDS ORDERED: METR-1 PO (14:50)
[2017-11-13] MEDS ORDERED: CIPR250T2 PO (14:50)
[2017-11-13] MEDS ORDERED: SENN8.6T81 PO (14:50)
--- NOTE | 2017-11-13 14:51 | HHI.DCPOC ---
Discharge Care Plan Diagnosis: (1) JENA (acute kidney injury) (2) S/p nephrectomy (3) DM (diabetes mellitus) (4) HTN (hypertension) (5) Diverticulitis (6) UTI (urinary tract infection) Goals to Promote Your Health * To prevent worsening of your condition and complications * To maintain your health at the optimal level Directions to Meet Your Goals Take your medications as prescribed Follow your dietary instruction Follow activity as directed Keep your appointments as scheduled Take your immunizations and boosters as scheduled If your symptoms worsen call your PCP, if no PCP go to Urgent Care Center or Emergency Room Smoking is Dangerous to Your Health. Avoid second hand smoke Call the 24-hour hour crisis hotline for domestic abuse at Chapin Thacker DO Nov 13, 2017 14:51
--- NOTE | 2017-11-13 15:00 | HHI.PR ---
Subjective Remarks The patient was feeling well and wanted to go home. She has been tolerating a diet. She has been having bowel movements. She has no abdominal pain. Discussed with family and nursing. Objective Vitals Vital Signs Date Time Temp Pulse Resp B/P (MAP) Pulse Ox O2 Delivery O2 Flow Rate FiO2 11/13/17 12:00 96.5 64 17 130/61 (84) 97 11/13/17 08:00 97.2 71 17 186/74 (111) 97 11/13/17 04:29 67 156/71 (99) 11/13/17 00:00 98.1 75 18 180/80 (113) 93 11/12/17 21:44 98.9 75 18 138/63 (88) 95 11/12/17 16:00 97.0 71 17 157/71 (99) 98 I/O 11/12/17 11/12/17 11/12/17 11/13/17 11/13/17 11/13/17 07:00 15:00 23:00 07:00 15:00 23:00 Intake Total 1650 ml 650 ml 1050 ml 100 ml Balance 1650 ml 650 ml 1050 ml 100 ml Intake Oral 600 ml 600 ml IV Total 1050 ml 50 ml 1050 ml 100 ml # Voids 2 5 1 # Bowel Movements 2 1 0 Result Diagram: 11/13/17 0607 11/13/17 0607 Imaging Last Impressions Abdomen/Pelvis CT 11/11/17 0000 Signed Impressions: Service Date/Time: Saturday, November 11, 2017 16:36 - CONCLUSION: 1. Status post left nephrectomy with mild stranding in the nephrectomy bed without focal mass. 2. There is mild stranding along the medial left paracolic gutter which extends from the caudal portion of the nephrectomy bed to the pelvis. Adjacent colon does not appear significantly inflamed. Suspect this reflects postoperative change although early developing diverticulitis may have a similar appearance. 3. Small to moderate amount of stool in the rectum with mild sigmoid diverticulosis. 4. Small foci of air and mild stranding in the left subcutaneous anterior abdominal soft tissues likely secondary to subcutaneous injections. 5. Trace left pleural effusion and left base, likely chronic. 6. Numerous hypodense lesions throughout the liver which are too small to fully characterize, as above. 7. Cholelithiasis. Balaji David MD Objective Remarks GENERAL: Resting comfortably. SKIN: Warm and dry. HEAD: Normocephalic. EYES: No scleral icterus. No injection or drainage. NECK: Supple, trachea midline. No JVD or lymphadenopathy. CARDIOVASCULAR: Regular rate and rhythm without murmurs, gallops, or rubs. RESPIRATORY: Breath sounds equal bilaterally. No accessory muscle use. GASTROINTESTINAL: Abdomen soft, non-tender, nondistended. MUSCULOSKELETAL: No cyanosis, or edema. BACK: Nontender without obvious deformity. No CVA tenderness. PSYCH: Mood and affect appropriate. Medications and IVs Current Medications Medications (Trade) Dose Ordered Sig/Velia Route Start Time Stop Time Status Last Admin (D50w (Vial) Inj) 50 ml UNSCH PRN IV PUSH 11/11/17 19:45 (Glucagon Inj) 1 mg UNSCH PRN OTHER 11/11/17 19:45 (NovoLOG SUPPLEMENTAL SCALE) 1 ACHS SLIDING SCALE SQ 11/11/17 21:00 11/13/17 12:21 Sodium Chloride 1,000 ml @ 70 mls/hr [id number] IV 11/11/17 19:45 11/13/17 04:30 (NS Flush) 2 ml UNSCH PRN IV FLUSH 11/11/17 19:45 (NS Flush) 2 ml BID IV FLUSH 11/11/17 21:00 (Zofran Inj) 4 mg Q6H PRN IVP 11/11/17 19:45 (Heparin Inj) 5,000 units Q12H SQ 11/12/17 09:00 11/13/17 09:53 (Tylenol) 650 mg Q6H PRN PO 11/11/17 19:45 (Morphine Inj) 2 mg Q3H PRN IV 11/11/17 20:15 (Mary-Colace) 1 tab BID PO 11/11/17 21:00 11/13/17 09:52 (Milk Of Magnesia Liq) 30 ml Q12H PRN PO 11/11/17 19:45 (Senokot) 17.2 mg Q12H PRN PO 11/11/17 19:45 (Dulcolax Supp) 10 mg DAILY PRN RECTAL 11/11/17 19:45 (Lactulose Liq) 30 ml DAILY PRN PO 11/11/17 19:45 (Ecotrin Ec) 325 mg DAILY PO 11/12/17 09:00 11/13/17 09:52 (Lipitor) 40 mg HS PO 11/11/17 21:00 11/12/17 20:41 (Plavix) 75 mg DAILY PO 11/12/17 09:00 11/13/17 09:52 (Lopressor) 100 mg DAILY PO 11/12/17 09:00 11/13/17 09:52 (Norvasc) 5 mg DAILY PO 11/12/17 09:00 11/13/17 09:52 (Cozaar) 100 mg DAILY PO 11/12/17 09:00 11/13/17 09:52 (Catapres) 0.1 mg Q6H PRN PO 11/11/17 23:15 11/13/17 00:22 Piperacillin Sod/ Tazobactam Sod 50 ml @ 100 mls/hr Q6H IV 11/12/17 14:00 11/13/17 13:34 A/P Problem List: (1) Diverticulitis ICD Code: K57.92 - Diverticulitis of intestine, part unspecified, without perforation or abscess without bleeding (2) UTI (urinary tract infection) ICD Code: N39.0 - Urinary tract infection, site not specified Status: Acute (3) JENA (acute kidney injury) ICD Code: N17.9 - Acute kidney failure, unspecified (4) S/p nephrectomy ICD Code: Z90.5 - Acquired absence of kidney (5) HTN (hypertension) ICD Code: I10 - Essential (primary) hypertension (6) DM (diabetes mellitus) ICD Code: E11.9 - Type 2 diabetes mellitus without complications Assessment and Plan Diverticulitis: CT Abd/Pelvis w/ possible early diverticulitis and post op changes s/p nephrectom. Currently on Zosyn IV q6h pending culture report. Analgesics/antiemetics as needed. - improved 11/13. Tolerating a diet. Change antibiotics to Cipro/ Flagyl. Outpt follow-up. UTI: U/a w/ UTI, s/p Rocephin in ER, continue w/ IV Zosyn pending culture report - culture grew klebsiella. Treatment with PO Cipro. JENA: Improving with IVF for hydration. Monitor BUN/creatinine Follow BMP as an outpt. Stable. Left Nephrectomy: S/p left nephrectomy secondary to renal mass, pathology positive for Renal Cell CA, following w/ Dr. Sadler. - follow-up w/ urology in 1 week. HTN: Continue outpatient medications and Optimize pain control, monitor BP DM: Sliding scale w/ Accu-Cheks. Continue to Hold Glipizide until taking adequate PO. - resume home meds. DVT Prophylaxis: Heparin sq Discharge Planning D/c home Problem Qualifiers (1) UTI (urinary tract infection): Qualified Codes: N39.0 - Urinary tract infection, site not specified; R31.9 - Hematuria, unspecified Chapin Thacker DO Nov 13, 2017 15:00
== END 2017-11-13 16:18 | disposition home or self-care (01) | DRG 683 ==
LOC: NEPE 13:38 → NEDA 19:31 → OBSVTOIN 19:48 → N07A 21:09
PROVIDERS: ADMIT Hospitalist; ATTEND Hospitalist
DX: N17.9 Acute kidney failure, unspecified (principal); N39.0 Urinary tract infection, site not specified; K57.32 Diverticulitis of large intestine without perforation or abscess without bleeding; B96.1 Klebsiella pneumoniae [K. pneumoniae] as the cause of diseases classified elsewhere; E11.9 Type 2 diabetes mellitus without complications; I10 Essential (primary) hypertension; K59.00 Constipation, unspecified; E78.5 Hyperlipidemia, unspecified; K21.9 Gastro-esophageal reflux disease without esophagitis; I25.10 Atherosclerotic heart disease of native coronary artery without angina pectoris; G47.30 Sleep apnea, unspecified; M19.90 Unspecified osteoarthritis, unspecified site; F32.9 Major depressive disorder, single episode, unspecified; Z79.84 Long term (current) use of oral hypoglycemic drugs; Z85.528 Personal history of other malignant neoplasm of kidney; Z88.5 Allergy status to narcotic agent; Z90.5 Acquired absence of kidney; Z95.5 Presence of coronary angioplasty implant and graft
CPT/HCPCS: 74176; 80048; 80053; 81001; 82948; 85025; 87077; 87086; 87186; J0696; J1644; J1815; J2543; J7030